=== PATIENT | female | born 1975 | race Caucasian/White ===

== ENCOUNTER 2022-08-20 21:27 | Observation (INO) | payer OTHER ==
[2022-08-20] MEDS ORDERED: KETOROLAC 30 MG/ML INJ ONE (22:28)
[2022-08-20] MEDS ORDERED: DIPHENHYDRAMINE 50 MG/ML VIAL ONE (22:28)
[2022-08-20] MEDS ORDERED: NA CHLORIDE 0.9% 1,000 ML ONE (22:28)
[2022-08-20] MEDS ORDERED: CEFTRIAXONE 1000 MG/VIAL ONE (22:28)
[2022-08-20] MEDS ORDERED: NA CHLORIDE 0.9% 50 ML IV ONE (22:28)
[2022-08-20] MEDS ORDERED: METOCLOPRAMIDE 10 MG/2mL INJ ONE (22:28)
--- NOTE | 2022-08-20 22:36 | RAD REPORT ---
EXAM DESCRIPTION: RAD - Chest Single View - 08/20/2022 10:25 pm CLINICAL HISTORY: COUGH COMPARISON: None TECHNIQUE: AP portable chest image was obtained 08/20/2022 10:25 pm . FINDINGS: Lungs are clear. Heart and vasculature are normal. No measurable pleural effusion and no p neumothorax. No acute bony abnormality seen. No acute aortic findings suspected. IMPRESSION: No acute cardiopulmonary process.
[2022-08-20 23:15] LABS: Urine Blood Negative (Negative); Urine Glucose Negative (Negative); Urine Protein Negative (Negative); Urine Specific Gravity 1.025 (1.005-1.030)
[2022-08-20 23:27] LABS: Calcium Oxalate Crystals- Ur Few /HPF (None Seen); Urine Bacteria <20 /HPF (<20); Urine Mucus 2+ /HPF (None Seen); Urine RBC <5 /HPF (None Seen)
[2022-08-20 23:54] LABS: Absolute Lymphocytes (CBC) 1.9 K/uL (0.7-4.9); Lymphocytes % 29.1 % (15.3-44.8); MCV 88.3 fL (80-100); MPV 7.1 fL (7.6-11.3)
[2022-08-20 23:56] LABS: Protime INR 1.1
[2022-08-21] MEDS ORDERED: DIPHENHYDRAMINE 50 MG/ML VIAL ONE (00:13)
[2022-08-21] MEDS ORDERED: FAMOTIDINE 20 MG/2 ML VIAL IV ONE (00:13)
[2022-08-21 00:14] LABS: Albumin 3.7 g/dL (3.4-5.0); Bilirubin Direct 0.1 mg/dL (0-0.2); Bilirubin Total 0.3 mg/dL (0.2-1.0); Magnesium 1.9 mg/dL (1.6-2.4); Potassium 3.4 mmol/L (3.5-5.1); Protein, Total 6.3 g/dL (6.4-8.2); Troponin High Sensitivity 7.8 pg/mL (<58.9)
[2022-08-21] MEDS ORDERED: NA CHLORIDE 0.9% 500 ML ONE (00:26)
[2022-08-21] MEDS ORDERED: PROMETHAZINE INJ 25 MG/ML AMP ONE ×2 (00:54→04:00)
[2022-08-21] MEDS ORDERED: dexAMETHasone 10 MG/ML VIAL ONE (00:54)
--- NOTE | 2022-08-21 00:55 | EDPHYS ---
Physician Documentation [facility] Name: Deb Ford Age: 47 yrs Sex: Female : 1975 Arrival Date: 08/20/2022 Time: 21:31 Bed 20 Private MD: ED Physician Jama Velásquez HPI: 08/21 00:08 This 47 yrs old Female presents to ER via EMS with complaints of Nausea/Vomiting, snw Headache. 00:08 The patient presents to the emergency department with nausea, vomiting. Onset: The snw symptoms/episode began/occurred acutely, 4 day(s) ago, and became worse and became persistent. Possible causes: chronic illness. Associated signs and symptoms: Pertinent positives: belching, nausea, vomiting. Severity of symptoms: At their worst the symptoms were moderate severe in the emergency department the symptoms are worse. The patient has experienced similar episodes in the past. It is unknown whether or not the patient has recently seen a physician. 00:46 The symptoms are aggravated by nothing. The symptoms are alleviated by remaining still. 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 - Social history:: Smoking status: Patient denies any tobacco usage or history of. ROS: 08/21 00:07 Constitutional: Negative for fever, chills, and weight loss, Eyes: Negative for injury, snw pain, redness, and discharge, ENT: Negative for injury, pain, and discharge, Neck: Negative for injury, pain, and swelling, Cardiovascular: Negative for chest pain, palpitations, and edema, Respiratory: Negative for shortness of breath, cough, wheezing, and pleuritic chest pain. Back: Negative for injury and pain. Skin: Negative for injury, rash, and discoloration. Abdomen/GI: Positive for nausea and vomiting. : Positive for frequent UTIs. MS/extremity: Positive for foot drop, uses wc. Skin: Neuro: Positive for headache. Exam: 00:46 Constitutional: This is a well developed, well nourished patient who is awake, alert, johnny and in no acute distress. Head/Face: Normocephalic, atraumatic. Eyes: Pupils equal round and reactive to light, extra-ocular motions intact. Lids and lashes normal. Conjunctiva and sclera are non-icteric and not injected. Cornea within normal limits. Periorbital areas with no swelling, redness, or edema. ENT: Nares patent. No nasal discharge, no septal abnormalities noted. Tympanic membranes are normal and external auditory canals are clear. Oropharynx with no redness, swelling, or masses, exudates, or evidence of obstruction, uvula midline. Mucous membranes moist. Neck: Trachea midline, no thyromegaly or masses palpated, and no cervical lymphadenopathy. Supple, full range of motion without nuchal rigidity, or vertebral point tenderness. No Meningismus. Chest/axilla: Normal chest wall appearance and motion. Nontender with no deformity. No lesions are appreciated. Cardiovascular: Regular rate and rhythm with a normal S1 and S2. No gallops, murmurs, or rubs. Normal PMI, no JVD. No pulse deficits. Respiratory: Lungs have equal breath sounds bilaterally, clear to auscultation and percussion. No rales, rhonchi or wheezes noted. No increased work of breathing, no retractions or nasal flaring. Abdomen/GI: Soft, non-tender, with normal bowel sounds. No distension or tympany. No guarding or rebound. No evidence of tenderness throughout. Back: No spinal tenderness. No costovertebral tenderness. Full range of motion. Skin: Warm, dry with normal turgor. Normal color with no rashes, no lesions, and no evidence of cellulitis. MS/ Extremity: Pulses equal, no cyanosis. Neurovascular intact. Full, normal range of motion. Neuro: Awake and alert, GCS 15, oriented to person, place, time, and situation. Cranial nerves II-XII grossly intact. Motor strength 5/5 in all extremities. Sensory grossly intact. Cerebellar exam normal. Normal gait. Psych: Awake, alert, with orientation to person, place and time. Behavior, mood, and affect are within normal limits. 00:46 Constitutional: The patient appears in obvious distress, mildly distressed. 00:46 Head/face: Noted is 00:46 Neck: External neck: is normal, no acute changes, C-spine: appears grossly normal, no acute changes, Thyroid: appears normal, no acute changes, ROM/movement: is normal. 00:46 ECG was reviewed by the Attending Physician. Vital Signs: 08/20 21:43 BP 100 / 76; Pulse 85; Resp 16 S; Temp 99.7(TE); Pulse Ox 98% on R/A; Weight 47.63 kg bb (R); Height 5 ft. 5 in. (165.10 cm) (R); Pain 8/10; 23:00 BP 98 / 74; Pulse 84; Temp 11; Pulse Ox 100% ; vc1 08/21 00:00 BP 88 / 64; Pulse 76; Resp 12; Pulse Ox 98% ; vc1 01:00 BP 90 / 53; Pulse 73; Resp 20; Pulse Ox 98% ; vc1 02:00 BP 85 / 52; Pulse 72; Resp 13; Pulse Ox 98% on R/A; vc1 03:02 BP 100 / 69; Pulse 65; Resp 14; Pulse Ox 100% on R/A; vc1 08/20 21:43 Body Mass Index 17.47 (47.63 kg, 165.10 cm) bb [place] Coma Score: 00:51 Eye Response: spontaneous(4). Verbal Response: oriented(5). Motor Response: obeys johnny commands(6). Total: 15. Procedures: 08/20 23:56 Peripheral line: by aseptic technique a peripheral line was placed in the left external snw jugular vein. MDM: 21:58 Patient medically screened. [facility] 08/21 00:51 Differential diagnosis: Nonspecific abd pain, gastritis, pancreatitis, viral johnny gastroenteritis, gastroenteritis. Differential diagnosis: generalized weakness, head injury, hyperventilation, hypovolemia, TIA. Data reviewed: vital signs, nurses notes, lab test result(s), EKG, radiologic studies, CT scan, plain films. Data interpreted: night monitor: rate is 85 beats/min, rhythm is regular, Pulse oximetry: on room air is 98 %. Test interpretation: by ED physician or midlevel provider: ECG, plain radiologic studies. Counseling: I had a detailed discussion with the patient and/or guardian regarding: the historical points, exam findings, and any diagnostic results supporting the discharge/admit diagnosis, the presence of at least one elevated blood pressure reading (>120/80) during this emergency department visit, lab results, radiology results, the need for further work-up and treatment in the hospital. 08/20 22:03 Order name: Basic Metabolic Panel; Complete Time: 00:18 [facility] 08/20 22:03 Order name: CBC with Diff; Complete Time: 00:18 [facility] 08/20 22:03 Order name: LFT's; Complete Time: 00:18 [facility] 08/20 22:03 Order name: Magnesium; Complete Time: 00:18 [facility] 08/20 22:03 Order name: NT PRO-BNP; Complete Time: 00:18 [facility] 08/20 22:03 Order name: PT-INR; Complete Time: 00:18 [facility] 08/20 22:03 Order name: Troponin HS; Complete Time: 00:18 [facility] 08/20 22:03 Order name: Lipase; Complete Time: 00:18 [facility] 08/20 22:03 Order name: Blood Culture Adult (2) [facility] 08/20 22:03 Order name: Lactate w/ 2H reflex if indic.; Complete Time: 00:18 [facility] 08/20 22:03 Order name: COVID-19/FLU A+B [facility] 08/20 22:06 Order name: Urine Microscopic Only; Complete Time: 23:51 [facility] 08/20 23:16 Order name: Urine Dipstick-Ancillary; Complete Time: 23:22 [facility] 08/20 23:37 Order name: Urine Culture [facility] 08/20 22:03 Order name: XRAY Chest (1 view); Complete Time: 23:22 [facility] 08/20 22:03 Order name: EKG; Complete Time: 22:04 [facility] 08/20 22:03 Order name: CT Head Brain wo Cont [facility] 08/21 00:46 Order name: SARS RAPID; Complete Time: 03:43 ll3 08/20 22:03 Order name: Cardiac monitoring; Complete Time: 22:46 [facility] 08/20 22:03 Order name: EKG - Nurse/Tech; Complete Time: 23:06 [facility] 08/20 22:03 Order name: IV Saline Lock; Complete Time: 22:28 [facility] 08/20 22:03 Order name: Labs collected and sent; Complete Time: 22:34 [facility] 08/20 22:03 Order name: O2 Per Protocol; Complete Time: 22:34 [facility] 08/20 22:03 Order name: O2 Sat Monitoring; Complete Time: 22:34 [facility] 08/20 22:06 Order name: Urine Dipstick-Ancillary (obtain specimen); Complete Time: 00:34 johnny 08/20 23:58 Order name: [place]. Order: pur-wick external cath; Complete Time: 00:22 snw 08/21 01:00 Order name: CONS Physician Consult EDMS EC:46 Rate is 68 beats/min. Rhythm is regular. QRS [place] is Normal. NC interval is normal. QRS johnny interval is normal. QT interval is normal. No Q waves. T waves are Normal. No ST changes noted. Clinical impression: NSR w/ Non-specific ST/T Changes and No evidence of ischemia. Interpreted by me. Reviewed by me. Administered Medications: 08/20 23:03 Drug: Benadryl (diphenhydrAMINE) 25 mg Route: IVP; Site: right forearm; vc1 23:03 Drug: Rocephin (cefTRIAXone) 1 grams Route: IV; Rate: per protocol; Site: right forearm;vc1 23:04 Drug: NS 0.9% 1000 ml Route: IV; Rate: 1 bolus; Site: right forearm; vc1 23:04 Drug: Ketorolac 15 mg Route: IVP; Site: right forearm; vc1 23:04 Drug: Reglan (metoCLOPramide) 10 mg Route: IVP; Site: right forearm; vc1 08/21 00:22 Drug: Benadryl (diphenhydrAMINE) 25 mg Route: IVP; Site: left jugular; vc1 00:22 Drug: Pepcid (famotidine) 20 mg Route: IVP; Site: left jugular; vc1 00:46 Drug: NS 0.9% (30 ml/kg) 30 ml/kg Route: IV; Rate: bolus; Site: left jugular; ll3 01:10 Drug: Phenergan (promethazine) 12.5 mg Route: IVP; Site: left jugular; ll3 01:10 Drug: Decadron - Dexamethasone 10 mg Route: IVP; Site: left jugular; ll3 01:13 Drug: NS 0.9% with KCl 20 mEq/L 1000 ml Route: IV; Rate: 125 ml/hr; Site: left jugular; ll3 04:01 Drug: Phenergan (promethazine) 12.5 mg Route: IVP; Site: left jugular; ll3 Disposition: 00:51 Co-signature as Attending Physician, Jama Velásquez MD I agree with the assessment and johnny plan of care. Disposition Summary: 08/21/22 00:54 Hospitalization Ordered Hospitalization Status: Observation johnny Provider: Jb Bowden cha Location: Telemetry/MedSurg (observation) johnny Condition: Fair johnny Problem: new johnny Symptoms: have improved johnny Bed/Room Type: Standard [facility] Room Assignment: 232(08/21/22 02:44) mw Diagnosis - Vomiting johnny - Hypokalemia johnny - Headache johnny - Dehydration johnny - UTI/ Urinary tract infection, site not specified johnny Forms: - Medication Reconciliation Form johnny - SBAR form johnny Signatures: Dispatcher [employer] EDMS Nurys Zuniga RN RN mw Anderson, Corey, MD MD cha Waters, Shelly, AUTO OVERHAULER-C AUTO OVERHAULER-Csnw Yolanda Knight RN RN bb Zayda Klein RN RN ll3 Dasia Rolle RN RN vc1 Corrections: (The following items were deleted from the chart) 02:44 00:54 johnny mw
--- NOTE | 2022-08-21 00:55 | ER ---
Nurse's Notes [facility] Name: Deb Ford Age: 47 yrs Sex: Female : 1975 Arrival Date: 08/20/2022 Time: 21:31 Bed 20 Private MD: Diagnosis: Vomiting;Hypokalemia;Headache;Dehydration;UTI/ Urinary tract infection, site not specified Presentation: 08/20 21:43 Chief complaint: Patient states: she has been vomiting with nausea x 3 or 4 days unable bb to hold anything down and it has caused her to have a severe migraine as well. Coronavirus screen: At this time, the client does not indicate any symptoms associated with coronavirus-19. Ebola Screen: No symptoms or risks identified at this time. Initial Sepsis Screen: Does the patient meet any 2 criteria? No. Patient's initial sepsis screen is negative. Does the patient have a suspected source of infection? No. Patient's initial sepsis screen is negative. Risk Assessment: Do you want to hurt yourself or someone else? Patient reports no desire to harm self or others. Onset of symptoms was August 17, 2022. 21:43 Method Of Arrival: EMS bb 21:43 Acuity: CATA 3 bb Triage Assessment: 08/21 02:47 General: Appears in no apparent distress. uncomfortable, Behavior is fussy, vc1 inappropriate for age. Pain: Complains of pain in headache. GI: Reports lower abdominal pain, upper abdominal pain, intolerance of food, nausea, vomiting. 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 - Social history:: Smoking status: Patient denies any tobacco usage or history of. Screenin:00 Abuse screen: Denies threats or abuse. Nutritional screening: Has had N/V for 3 or more vc1 days. 22:00 [facility] ED Fall Risk Assessment (Adult) History of falling in the last 3 months, vc1 including since admission No falls in past 3 months (0 pts) Confusion or Disorientation No (0 pts) Intoxicated or Sedated No (0 pts) Impaired Gait Yes (1 pt) Mobility Assist Device Used Yes (1 pt) Altered Elimination Yes (1 pt) Score/Fall Risk Level 3 or more points = High Risk Maintained a safe environment, Educated pt \T\ family on fall prevention, incl call for assistance when getting out of bed, Assessed \T\ reinforced patient's understanding of fall precautions. Tuberculosis screening: No symptoms or risk factors identified. Assessment: 23:00 Reassessment: No changes from previously documented assessment. Patient and/or family vc1 updated on plan of care and expected duration. Pain level reassessed. Patient states symptoms have not improved. 23:00 GI: Abdomen is flat. vc1 08/21 00:00 Reassessment: No changes from previously documented assessment. Patient and/or family vc1 updated on plan of care and expected duration. Pain level reassessed. 01:00 Reassessment: No changes from previously documented assessment. Patient and/or family vc1 updated on plan of care and expected duration. Pain level reassessed. 02:00 Reassessment: No changes from previously documented assessment. Patient and/or family vc1 updated on plan of care and expected duration. Pain level reassessed. 03:03 Reassessment: Patient and/or family updated on plan of care and expected duration. Pain vc1 level reassessed. Patient states feeling better. Patient states symptoms have improved. 04:06 Reassessment: Pt took own home meds with permission of Jama Velásquez MD, ERP, Pt took ll3 carbamazepine 200 MG PO, mexiletine 150 mg PO, topiramate 50 MG PO, Pregabalin 100 mg PO, tramadol 200 mg PO. Vital Signs: 08/20 21:43 BP 100 / 76; Pulse 85; Resp 16 S; Temp 99.7(TE); Pulse Ox 98% on R/A; Weight 47.63 kg bb (R); Height 5 ft. 5 in. (165.10 cm) (R); Pain 8/10; 23:00 BP 98 / 74; Pulse 84; Temp 11; Pulse Ox 100% ; vc1 08/21 00:00 BP 88 / 64; Pulse 76; Resp 12; Pulse Ox 98% ; vc1 01:00 BP 90 / 53; Pulse 73; Resp 20; Pulse Ox 98% ; vc1 02:00 BP 85 / 52; Pulse 72; Resp 13; Pulse Ox 98% on R/A; vc1 03:02 BP 100 / 69; Pulse 65; Resp 14; Pulse Ox 100% on R/A; vc1 08/20 21:43 Body Mass Index 17.47 (47.63 kg, 165.10 cm) bb [place] Coma Score: 00:51 Eye Response: spontaneous(4). Verbal Response: oriented(5). Motor Response: obeys johnny commands(6). Total: 15. ED Course: 08/20 21:31 Patient arrived in ED. jj6 21:45 Triage completed. bb 21:45 Arm band placed on Patient placed in an exam room, on a stretcher, on pulse oximetry. bb Family accompanied patient. 21:50 Patient has correct armband on for positive identification. Placed in gown. Bed in low vc1 position. Call light in reach. Client placed on continuous cardiac and pulse oximetry monitoring. NIBP monitoring applied. 21:57 Jama Velásquez MD is Attending Physician. johnny 22:15 Dasia Rolle, RN is Primary Nurse. vc1 22:26 XRAY Chest (1 view) In Process Unspecified. EDMS 22:48 CT Head Brain wo Cont In Process Unspecified. EDMS 08/21 00:53 bJ Bowden MD is Hospitalizing Provider. johnny 00:53 SARS RAPID Sent. ll3 04:58 No provider procedures requiring assistance completed. Patient admitted, IV remains in vc1 place. Administered Medications: 08/20 23:03 Drug: Benadryl (diphenhydrAMINE) 25 mg Route: IVP; Site: right forearm; vc1 23:03 Drug: Rocephin (cefTRIAXone) 1 grams Route: IV; Rate: per protocol; Site: right forearm;vc1 23:04 Drug: NS 0.9% 1000 ml Route: IV; Rate: 1 bolus; Site: right forearm; vc1 23:04 Drug: Ketorolac 15 mg Route: IVP; Site: right forearm; vc1 23:04 Drug: Reglan (metoCLOPramide) 10 mg Route: IVP; Site: right forearm; vc1 08/21 00:22 Drug: Benadryl (diphenhydrAMINE) 25 mg Route: IVP; Site: left jugular; vc1 00:22 Drug: Pepcid (famotidine) 20 mg Route: IVP; Site: left jugular; vc1 00:46 Drug: NS 0.9% (30 ml/kg) 30 ml/kg Route: IV; Rate: bolus; Site: left jugular; ll3 01:10 Drug: Phenergan (promethazine) 12.5 mg Route: IVP; Site: left jugular; ll3 01:10 Drug: Decadron - Dexamethasone 10 mg Route: IVP; Site: left jugular; ll3 01:13 Drug: NS 0.9% with KCl 20 mEq/L 1000 ml Route: IV; Rate: 125 ml/hr; Site: left jugular; ll3 04:01 Drug: Phenergan (promethazine) 12.5 mg Route: IVP; Site: left jugular; ll3 Medication: 03:03 VIS not applicable for this client. vc1 Outcome: 00:54 Decision to Hospitalize by Provider. johnny 04:58 Admitted to Med/surg accompanied by tech, via stretcher, room 232, with chart, Report vc1 called to Prosper Brewer 04:58 Condition: improved 04:59 Patient left the ED. vc1 Signatures: Dispatcher [employer] EDMS Jama Velásquez MD MD cha Waters, Shelly, ETHNOLOGY PROFESSOR-C ETHNOLOGY PROFESSOR-Csnw Yolanda Knight, April Brantley RN, Lynsea, RN RN ll3 Dasia Rolle RN RN vc1
[2022-08-21] MEDS ORDERED: NS KCL 20MEQ 1,000 ML IV ONE (01:07)
[2022-08-21 01:11] LABS: SARS-CoV-2 Antigen Rapid Res Negative (Negative)
[2022-08-21] MEDS ORDERED: ACETAMINOPHEN 325 MG TABLET PO PRN (05:01)
[2022-08-21] MEDS ORDERED: NS KCL 20MEQ 20 MEQ/1,000 ML BAG IV SCH (05:01)
[2022-08-21] MEDS ORDERED: MORPHINE 2 MG/ML SYR IV PRN (05:01)
[2022-08-21 06:19] VITALS: BMI 18.8
[2022-08-21] MEDS: ONDANSETRON 4 MG/2 ML VIAL IV PRN ×2 (06:24→15:49)
[2022-08-21] MEDS ORDERED: FAMOTIDINE 20 MG/2 ML VIAL IV SCH (09:00)
--- NOTE | 2022-08-21 11:02 | RAD REPORT ---
EXAM DESCRIPTION: CT - Head Brain Wo Cont - 08/21/2022 6:40 am CLINICAL HISTORY: 47-year-old female with headache. COMPARISON: None. TECHNIQUE: CT brain without contrast. This exam was performed according to our departmental dose opt imization program which includes use of automated exposure control, adjustment of the mA and/or kV ac cording to patient size and/or use of iterative reconstruction technique. FINDINGS: The ventricles, sulci, and cisterns are within normal limits. The oliveira-white matter diff erentiation is preserved. There is no mass effect, midline shift, intra- or extra-axial fluid colle ction/acute hemorrhage. The osseous structures are unremarkable. The paranasal sinuses and mastoi d air cells are clear. IMPRESSION: No acute intracranial abnormalities. 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 The interpreting radiologist is fully responsible for the content of the report.
[2022-08-21] MEDS ORDERED: SUMATRIPTAN SUCCI 50 MG TAB PO PRN (11:54)
[2022-08-21] MEDS ORDERED: PROMETHAZINE INJ 25 MG/ML AMP IV PRN (11:54)
[2022-08-21] MEDS: ACETAMINOPHEN 500 MG TAB PO SCH ×2 (12:00→18:00)
--- NOTE | 2022-08-21 12:05 | P.HP ---
Certification for Inpatient Patient admitted to: Observation With expected LOS: <2 Midnights Patient will require the following post-hospital care: None Practitioner: I am a practitioner with admitting privileges, knowledge of patient current condition, hospital course, and medical plan of care. Services: Services provided to patient in accordance with Admission requirements found in Title 42 Section 412.3 of the Code of Federal Regulations Patient History Date of Service: 08/21/22 Primary Care Provider: Kal Reason for admission: Migrane, intractable nausea and vomitting History of Present Illness: patient recently established care with me The patient has a history of chronic pain syndrome. For which she took ketamine and buprenorphine. I had restarted her on the burprenorphine. She started having nausea and vomiting for 4 days. She started having migraines. The patient was trying to take her sumatriptans However she has been having more nausea and vomitting. The patient was admitted to the hospital and started on fluids. Her migranes and nausea resolved with zofran. The patient tolerated clear liquid diet. Her is at the bedside. He is a bit nervous about the care of his . Which is normal as the spouse of a patient with chronic medical problems. he is not abusive or rude in anyway Allergies nitrofurantoin [From Macrobid] Allergy (Unverified 08/21/17 22:25) Unknown Penicillins Allergy (Unverified 08/21/17 22:25) Unknown sulfamethoxazole [From Bactrim] Allergy (Unverified 08/21/17 22:25) Unknown trimethoprim [From Bactrim] Allergy (Unverified 08/21/17 22:25) Unknown Erythromycin Allergy (Uncoded 08/21/17 22:25) Unknown Home Medications: Carbamazepine [Carbamazepine ER] 200 mg PO BID 08/21/22 Cyanocobalamin (Vitamin B-12) [Cyanocobalamin Injection] 1 ml SQ EVERY 7TH DAY 08/21/22 Lidocaine 4% Patch [Lidoderm 5% Patch*] 1 patch TOP Q12HP PRN 08/21/22 Mexiletine HCl [Mexitil*] 150 mg PO BID 08/21/22 Ondansetron [Zuplenz] 4 mg SL PRN PRN 08/21/22 Pregabalin [Lyrica] 100 mg PO BID 08/21/22 Sumatriptan [Imitrex*] 6 mg PO PRN 08/21/22 Sumatriptan [Imitrex*] 100 mg PO PRN PRN 08/21/22 Topiramate 50 mg PO BID 08/21/22 traMADol HCL [Ultram*] 200 mg PO DAILY 08/21/22 - Past Medical/Surgical History Has patient received pneumonia vaccine in the past: No Diabetic: No -: gastroparesis -: foot drop to L leg -: chronic back pain -: hysterectomy -: back surgeries x9 -: gallblader and appendix removal -: abd hernia -: prolapse bladder -: prolaspse uterus -: 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 moist/pink, EOMI, Sclerae nonicteric Neck: Supple, 2+ carotid pulse no bruit, No LAD, Without JVD or thyroid abnorm ality Respiratory: Clear to auscultation bilaterally, Normal air movement Cardiovascular: Regular rate/rhythm, Normal S1 S2 Gastrointestinal: Normal bowel sounds, No tenderness Musculoskeletal: No tenderness Integumentary: No rashes Neurological: Normal gait, Normal speech, Normal strength at 5/5 x4 extr, Normal tone, Normal affect Lymphatics: No axilla or inguinal lymphadenopathy - Studies Laboratory Data (last 24 hrs) 08/20/22 23:39: PT 12.1, INR 1.10 08/20/22 23:39: WBC 6.60, Hgb 13.1, Hct 38.0, Plt Count 211 08/20/22 23:39: Sodium 141, Potassium 3.4 L, BUN 16, Creatinine 0.52 L, Glucose 88, Magnesium 1.9, Total Bilirubin 0.3, AST 13 L, ALT 21, Alkaline Phosphatase 67, Lipase 245 Assessment and Plan - Problems (Diagnosis) (1) Acute migraine Current Visit: Yes Status: Acute Plan: will continue fluids, sumatriptan and phenergan. Will start feeding the patient and see how she tolerates (2) UTI (urinary tract infection) Current Visit: Yes Status: Acute Plan: start her on a few days of cipro Qualifiers: Urinary tract infection type: acute cystitis Hematuria presence: without hematuria Qualified Code(s): N30.00 - Acute cystitis without hematuria (3) Chronic pain syndrome Current Visit: Yes Status: Chronic Plan: restart the patients cipro. Discharge Plan: Home Plan to discharge in: 24 Hours - Advance Directives Does patient have a Living Will: Yes Does patient have a Durable POA for Healthcare: Yes - Code Status/Comfort Care Code Status Assessed: Yes Code Status: Full Code Physician Review: Patient Assessed, Agree with Above Assessment and Plan Critical Care: No Time Spent Managing Pts Care (In Minutes): 45
[2022-08-21] MEDS ORDERED: LIDOCAINE 4% PATCH TOP PRN (12:10)
[2022-08-21] MEDS ORDERED: ONDANSETRON 4 MG SL PRN (12:10)
[2022-08-21] MEDS: D5 0.45 NS 1,000 ML IV SCH ×2 (15:49→22:00)
[2022-08-21] MEDS ORDERED: BUPRENORPHINE 8 MG SL SCH (16:00)
[2022-08-21] MEDS ORDERED: TRAMADOL 200 MG PO SCH (17:00)
[2022-08-21] MEDS: KETAMINE PO SCH ×2 (17:00→22:23)
[2022-08-21] MEDS ORDERED: TOPIRAMATE 25 MG TAB PO SCH (21:00)
[2022-08-21] MEDS: CARBAMAZEPINE 200 MG PO SCH ×2 (21:00→22:17)
[2022-08-21] MEDS ORDERED: PREGABALIN 50 MG CAP PO SCH (21:00)
[2022-08-21] MEDS ORDERED: KETAMINE PO SCH (21:00)
[2022-08-21] MEDS ORDERED: MEXILETINE HCL 150 MG CAP PO SCH (21:00)
[2022-08-22] MEDS: ACETAMINOPHEN 500 MG TAB PO SCH ×2 (00:58→06:00)
[2022-08-22 01:26] VITALS: O2SAT 99
[2022-08-22 06:48] LABS: Hematocrit 33.9 % (36.0-45.0); Lymphocytes % 53.2 % (15.3-44.8); MCV 87.7 fL (80-100); MPV 7.1 fL (7.6-11.3); RBC Red Blood Cell Count 3.86 M/uL (3.86-4.86)
[2022-08-22 07:35] LABS: Blood Morphology Comment NOT SEEN (NOT SEEN); Platelet Estimate ADEQ
--- NOTE | 2022-08-22 08:15 | P.DS ---
Admission Date: 08/21/22 Discharge Date: 08/22/22 Primary Care Provider: Kal Disposition: ROUTINE DISCHARGE Discharge Condition: GOOD Reason for Admission: Migrane, intractable nausea and vomitting - Problems (1) Acute migraine Current Visit: Yes Status: Acute (2) UTI (urinary tract infection) Current Visit: Yes Status: Acute Qualifiers: Urinary tract infection type: acute cystitis Hematuria presence: without hematuria Qualified Code(s): N30.00 - Acute cystitis without hematuria (3) Chronic pain syndrome Current Visit: Yes Status: Chronic Brief History of Present Illness: patient recently established care with me The patient has a history of chronic pain syndrome. For which she took ketamine and buprenorphine. I had restarted her on the burprenorphine. She started having nausea and vomiting for 4 days. She started having migraines. The patient was trying to take her sumatriptans However she has been having more nausea and vomitting. The patient was admitted to the hospital and started on fluids. Her migranes and nausea resolved with zofran. The patient tolerated clear liquid diet. Her is at the bedside. He is a bit nervous about the care of his . Which is normal as the spouse of a patient with chronic medical problems. he is not abusive or rude in anyway Hospital Course: patient came in with leon, N&V. She was found to have a mild uti She did very well with fluids. the patient did complaint of more back pain. Will in crease her buprenorphine from my office computer. She can follow up in a week. Thank you for allowing me to take part in her care. Vital Signs/Physical Exam: Temp Pulse Resp BP Pulse Ox 97.7 F 75 18 106/76 100 08/22/22 04:00 08/22/22 04:00 08/22/22 04:00 08/22/22 04:00 08/22/22 04:00 General: Alert, Mild distress HEENT: Atraumatic, PERRLA, EOMI Neck: Supple, JVD not distended Respiratory: Clear to auscultation bilaterally, Normal air movement Cardiovascular: Regular rate/rhythm, Normal S1 S2 Gastrointestinal: Normal bowel sounds, No tenderness Musculoskeletal: No tenderness Integumentary: No rashes Neurological: Normal speech, Normal tone, Normal affect Lymphatics: No axilla or inguinal lymphadenopathy Laboratory Data at Discharge: WBC 5.70 K/uL (4.3-10.9) 08/22/22 06:15 Hgb 12.0 g/dL (12.0-15.0) 08/22/22 06:15 Hct 33.9 % (36.0-45.0) L 08/22/22 06:15 Plt Count 182 K/uL (152-406) 08/22/22 06:15 PT 12.1 SECONDS (9.5-12.5) 08/20/22 23:39 INR 1.10 08/20/22 23:39 Sodium 144 mmol/L (136-145) 08/22/22 06:15 Potassium 3.0 mmol/L (3.5-5.1) L D 08/22/22 06:15 BUN 8 mg/dL (7-18) 08/22/22 06:15 Creatinine 0.51 mg/dL (0.55-1.02) L 08/22/22 06:15 Glucose 100 mg/dL (74-106) 08/22/22 06:15 Magnesium 1.9 mg/dL (1.6-2.4) 08/20/22 23:39 Total Bilirubin 0.3 mg/dL (0.2-1.0) 08/20/22 23:39 AST 13 U/L (15-37) L 08/20/22 23:39 ALT 21 U/L (13-56) 08/20/22 23:39 Alkaline Phosphatase 67 U/L (45-117) 08/20/22 23:39 Lipase 245 U/L (73-393) 08/20/22 23:39 Home Medications: Carbamazepine [Carbamazepine ER] 200 mg PO BID 08/21/22 Cyanocobalamin (Vitamin B-12) [Cyanocobalamin Injection] 1 ml SQ EVERY 7TH DAY 08/21/22 Lidocaine 4% Patch [Lidoderm 5% Patch*] 1 patch TOP Q12HP PRN 08/21/22 Mexiletine HCl [Mexitil*] 150 mg PO BID 08/21/22 Ondansetron [Zuplenz] 4 mg SL PRN PRN 08/21/22 Pregabalin [Lyrica] 100 mg PO BID 08/21/22 Sumatriptan [Imitrex*] 6 mg PO PRN 08/21/22 Sumatriptan [Imitrex*] 100 mg PO PRN PRN 08/21/22 Topiramate 50 mg PO BID 08/21/22 traMADol HCL [Ultram*] 200 mg PO DAILY 08/21/22 Ciprofloxacin HCl [Cipro 500 MG Tablet] 500 mg PO BID 5 Days #10 tab 08/22/22 New Medications: Ciprofloxacin HCl [Cipro 500 MG Tablet] 500 mg PO BID 5 Days #10 tab Diet: Regular Activity: Ad delgado Followup: Jb Bowden MD [Primary Care Provider] - 1 Week Physician Review: Patient Assessed, Agree with Above Assessment and Plan Time spent managing pt's care (in minutes): 30
--- NOTE | 2022-08-22 08:34 | EKG ---
Test Date: 2022-08-21 Test Time: 00:30:23 Office Helper: ADÁN MEASUREMENT RESULTS: Intervals: Rate: 68 UT: 130 QRSD: 92 QT: 454 QTc: 482 [place]: P: 56 UT: 130 QRS: 85 T: 74 INTERPRETIVE STATEMENTS: Normal sinus rhythm RSR' or QR pattern in V1 suggests right ventricular conduction delay Nonspecific ST abnormality Abnormal ECG No previous ECG available for comparison Electronically Signed On 08-22-22 08:31:20 CORPORATE TRAVEL COUNSELOR by Dennis Remy
[2022-08-22 09:07] VITALS: BP 106/60; TEMP 97.3
[2022-08-28] MEDS ORDERED: CYANOCOBALAMIN 1000MCG/ML INJ SQ SCH (09:00)
== END 2022-08-22 10:44 | disposition home or self-care (01) ==
LOC: ER 21:27 → ERHOLD 08-21 00:56 → 2ND 08-21 04:11
PROVIDERS: ADMIT Internal Medicine; ATTEND Internal Medicine
DX: G43.909 Migraine, unspecified, not intractable, without status migrainosus (principal); N39.0 Urinary tract infection, site not specified; G89.29 Other chronic pain; Z88.0 Allergy status to penicillin; Z88.8 Allergy status to other drugs, medicaments and biological substances; Z88.3 Allergy status to other anti-infective agents; Z86.79 Personal history of other diseases of the circulatory system; Z85.9 Personal history of malignant neoplasm, unspecified; Z20.822 Contact with and (suspected) exposure to COVID-19
CPT/HCPCS: 93005; 87040 ×2; 87088; 85025 ×2; 87086; 80048 ×2; 36415 ×2; 83735; 84132; 85610; 80076; 83605; 84484; 83690; 83880; 70450; 71045; 99285; 87811; J2765; J2550 ×2; J1200 ×2; J2001; J1100; J7799; J7040; J7030; J2405 ×2; J3480; 81003; 81015

== ENCOUNTER 2023-06-05 16:50 | Inpatient (IN) | payer OTHER ==
--- OUTSIDE RECORDS SUMMARY | 2023-06-05 16:53 | XMS REPORT | Continuity of Care Document ---
:1975 Author Organization [facility] t Address [address] [place] [address] Care Team Providers Name Role Phone BLANCA PATEL Primary Care Physician Unavailable PEPITO SY Attending Clinician Unavailable ROBE CHAMBERS Attending Clinician Unavailable Doctor Unassigned, [place] Attending Clinician Unavailable Pob, [facility] Main Attending Clinician Unavailable Pepito Sy MD Attending Clinician John Solano MD Attending Clinician JOHN SOLANO Attending Clinician Unavailable JOHN SOLANO Attending Clinician Unavailable PEPITO SY Admitting Clinician Unavailable Payers Payer Name Policy Type Policy Number Effective Date Expiration Date S cleo [employer] CHOICE [id number] 2022 00:00:00 Problems This patient has no known problems. Allergies, Adverse Reactions, Alerts Allergy Allergy Status Severity Reaction(s) Onset Inactive Treating Comm ents Source Name Type Date Date Clinician ADHESIVE DRUG Active Med Rash 2022-08 Univers TAPE-JERROD 0-10 ity of ICONES 00:00: [place] [facility] Adhesive Drug Active Rash 2022-08 Rash from Unive rs Tape-Jerrod Intolera 0-10 steri-str ity of icones nce 00:00: [facility] [place] tegaderm [facility] Erythrom Drug Active Nausea 2022-08 Univers ycin Allergy and/or 0-10 ity of Ethylsuc Vomiting 00:00: [place] cinate [facility] Nitrofur Drug Active Nausea 2022-08 Univers antoin Allergy and/or 0-10 ity of Monohyd/ Vomiting 00:00: [place] M-Cryst 00 Medical Branch Penicill Drug Active Hives 2022-08 Univers ins Allergy 0-10 ity of 00:00: [place] 00 Medical Branch Sulfa Drug Active Nausea 2022-08 Univers (Sulfona Allergy and/or 0-10 ity of mide Vomiting 00:00: [place] Antibiot 00 Medical ics) Branch PENICILL Drug Active High Hives 2022-08 Univers INS Class 0-10 ity of 00:00: [place] 00 Medical Branch NITROFUR DRUG Active High Hives 2022-08 Univers ANTOIN 0-10 ity of MONOHYD/ 00:00: [place] M-CRYST Medical Branch SULFA Drug Active High Hives 2022-08 Univers (SULFONA Class 0-10 ity of MIDE 00:00: [place] ANTIBIOT 00 Medical ICS) Branch ERYTHROM DRUG Active High Hives 2022-08 Univers YCIN INGREDI 0-10 ity of ETHYLSUC 00:00: [place] CINATE 00 Medical Branch NO KNOWN Drug Active Univers ALLERGIE Class ity of S [facility] Social History Social Habit Start Date Stop Date Quantity Comments Source Gender identity Universit y of [facility] Sexual orientation Univer sity [facility] Tobacco use and 2023-05-29 2023-05-29 Smokeless Universit y of exposure 00:00:00 00:00:00 tobacco non-user [facility] dical [place] History of Social 2023-05-08 2023-05-08 Univers ity of function 00:00:00 00:00:00 [facility] Sex [birth year] At [birth year] Universit y of 00:00:00 00:00:00 [facility] Smoking Status Start Date Stop Date Source Never smoked tobacco [facility] [place] [facility] Medications Ordered Filled Start Stop Current Ordering Indication Dosage Frequency Signature Comments Components Source Medication Medication Date Date Medication? Clinician (SIG) Name Name mexiletine 2022-08 Yes 150mg Take 1 Univ ers 150 mg 0-10 capsule by ity of capsule 15:20: mouth in [place] 20 the Medical morning Branch and 1 capsule in the evening. BID sumatriptan 2022-08 Yes 100mg Take 1 Uni vers (IMITREX) 0-10 tablet by ity o f 100 mg 15:20: mouth as [place] tablet 20 needed for Medical Migraine. Branch carBAMazepi 2023-1 Yes 200mg Take 1 Uni vers ne 200 mg 0-10 tablet by ity o f 12 hr 15:20: mouth in [place] tablet 20 the Medical morning Branch and 1 tablet in the evening. carBAMazepi 2023-0 Yes 200mg Take 1 Uni vers ne 200 mg 9-19 tablet by ity o f 12 hr 11:05: mouth in [place] tablet 25 the Medical morning Branch and 1 tablet in the evening. carBAMazepi 2023-0 Yes 200mg Take 1 Uni vers ne 200 mg 9-19 tablet by ity o f 12 hr 11:05: mouth in [place] tablet 25 the Medical morning Branch and 1 tablet in the evening. carBAMazepi 2023-0 Yes 200mg Take 1 Uni vers ne 200 mg 9-19 tablet by ity o f 12 hr 11:05: mouth in [place] tablet 25 the Medical morning Branch and 1 tablet in the evening. carBAMazepi 2023-0 Yes 200mg Take 1 Uni vers ne 200 mg 9-19 tablet by ity o f 12 hr 11:05: mouth in [place] tablet 25 the Medical morning Branch and 1 tablet in the evening. sumatriptan 2023-0 Yes 100mg Take 1 Uni vers (IMITREX) 9-19 tablet by ity o f 100 mg 11:04: mouth as [place] tablet 51 needed for Medical Migraine. Branch sumatriptan 2023-0 Yes 100mg Take 1 Uni vers (IMITREX) 9-19 tablet by ity o f 100 mg 11:04: mouth as [place] tablet 51 needed for Medical Migraine. Branch sumatriptan 2023-0 Yes 100mg Take 1 Uni vers (IMITREX) 9-19 tablet by ity o f 100 mg 11:04: mouth as [place] tablet 51 needed for Medical Migraine. Branch sumatriptan 2023-0 Yes 100mg Take 1 Uni vers (IMITREX) 9-19 tablet by ity o f 100 mg 11:04: mouth as [place] tablet 51 needed for Medical Migraine. Branch mexiletine 2023-0 Yes 150mg Take 1 Univ ers 150 mg 9-19 capsule by ity of capsule 11:03: mouth [place] 38 every 8 Medical (eight) Branch hours. BID mexiletine 2023-0 Yes 150mg Take 1 Univ ers 150 mg 9-19 capsule by ity of capsule 11:03: mouth [place] 38 every 8 Medical (eight) Branch hours. BID mexiletine 2023-0 Yes 150mg Take 1 Univ ers 150 mg 9-19 capsule by ity of capsule 11:03: mouth [place] 38 every 8 Medical (eight) Branch hours. BID mexiletine 2023-0 Yes 150mg Take 1 Univ ers 150 mg 9-19 capsule by ity of capsule 11:03: mouth [place] 38 every 8 Medical (eight) Branch hours. BID topiramate 2023-0 Yes 50mg 1 tablet. Un tone 50 mg 9-14 ONCE DAILY ity of tablet 00:00: [place] [facility] topiramate 2023-0 Yes 50mg 1 tablet. Un tone 50 mg 9-14 ONCE DAILY ity of tablet 00:00: [place] [facility] topiramate 2023-0 Yes 50mg 1 tablet. Un tone 50 mg 9-14 ONCE DAILY ity of tablet 00:00: [place] [facility] topiramate 2023-0 Yes 50mg 1 tablet. Un tone 50 mg 9-14 ONCE DAILY ity of tablet 00:00: [place] [facility] topiramate 2023-0 Yes 50mg 1 tablet. Un tone 50 mg 9-14 ONCE DAILY ity of tablet 00:00: [place] [facility] buprenorphi 3-[address] 1 Uni vers ne HCL 8 mg 9-11 tablet ity of sublingual 00:00: under the [place] tablet 00 tongue in Medical the Branch morning and 1 tablet in the evening. traMADoL 3-0 Yes 200mg Take 1 Univer s 200 mg 24 9-11 tablet by ity o f hr tablet 00:00: mouth once [place] 00 daily as Medical needed. Branch buprenorphi 3-0 Yes DISSOLVE 1 Univers ne HCL 8 mg 9-11 TABLET ity of sublingual 00:00: UNDER THE [place] tablet 00 TONGUE Medical EVERY DAY Branch traMADoL 3-0 Yes 200mg Take 1 Univer s 200 mg 24 9-11 tablet by it[place] o f hr tablet 00:00: [place] the [place] morning. Branch buprenorphi 3-0 Yes DISSOLVE 1 Univers ne HCL 8 mg 9-11 TABLET ity of sublingual 00:00: [place]ER THE [place] tablet 00 TONGUE Medical EVERY DAY Branch traMADoL 2023-0 Yes 200mg Take 1 Univer s 200 mg 24 9-11 tablet by ity o f hr tablet 00:00: mouth in the Medical morning. Branch buprenorphi 3-0 Yes DISSOLVE 1 Univers ne HCL 8 mg 9-11 TABLET ity of sublingual 00:00: [place]ER THE [place] tablet 00 TONGUE Medical EVERY DAY Branch traMADoL 3-0 Yes 200mg Take 1 Univer s 200 mg 24 9-11 tablet by ity o f hr tablet 00:00: mouth in the Medical morning. Branch buprenorphi 3-0 Yes DISSOLVE 1 Univers ne HCL 8 mg 9-11 TABLET ity of sublingual 00:00: [place]ER THE [place] tablet 00 TONGUE Medical EVERY DAY Branch traMADoL 3-0 Yes 200mg Take 1 Univer s 200 mg 24 9-11 tablet by ity o f hr tablet 00:00: mouth in the Medical morning. Branch phenazopyri 3-0 Yes TAKE 1 Univ ers dine 100 mg 9-05 TABLET BY ity of tablet 00:00: MOUTH 00 THREE Medical TIMES Branch DAILY NEEDED FOR DYSURIA phenazopyri 2023-0 Yes TAKE 1 Univ ers dine 100 mg 9-05 TABLET BY ity of tablet 00:00: MOUTH 00 THREE Medical TIMES Branch DAILY NEEDED FOR DYSURIA phenazopyri 2023-0 Yes TAKE 1 Univ ers dine 100 mg 9-05 TABLET BY ity of tablet 00:00: MOUTH 00 THREE Medical TIMES Branch DAILY NEEDED FOR DYSURIA phenazopyri 2023-0 Yes TAKE 1 Univ ers dine 100 mg 9-05 TABLET BY ity of tablet 00:00: MOUTH 00 THREE Medical TIMES Branch DAILY NEEDED FOR DYSURIA phenazopyri 2023-0 Yes TAKE 1 Univ ers dine 100 mg 9-05 TABLET BY ity of tablet 00:00: MOUTH 00 THREE Medical TIMES Branch DAILY NEEDED FOR DYSURIA proMETHazin 2023-0 Yes TAKE 1 Univ ers e 12.5 mg 8-01 TABLET BY ity o f tablet 00:00: MOUTH [place] 00 EVERY 6 TO Medical 8 HOURS Branch NEEDED 7 DAYS proMETHazin 2023-0 Yes TAKE 1 Univ ers e 12.5 mg 8-01 TABLET BY ity o f tablet 00:00: MOUTH [place] 00 EVERY 6 TO Medical 8 HOURS Branch NEEDED 7 DAYS proMETHazin 2023-0 Yes TAKE 1 Univ ers e 12.5 mg 8-01 TABLET BY ity o f tablet 00:00: MOUTH [place] 00 EVERY 6 TO Medical 8 HOURS Branch NEEDED 7 DAYS proMETHazin 2023-0 Yes TAKE 1 Univ ers e 12.5 mg 8-01 TABLET BY ity o f tablet 00:00: MOUTH [place] 00 EVERY 6 TO Medical 8 HOURS Branch NEEDED 7 DAYS proMETHazin 2023-0 Yes TAKE 1 Univ ers e 12.5 mg 8-01 TABLET BY ity o f tablet 00:00: MOUTH [place] 00 EVERY 6 TO Medical 8 HOURS Branch NEEDED 7 DAYS pregabalin 2023-0 Yes 100mg Take 1 Univ ers 100 mg 7-30 capsule by ity of capsule 00:00: mouth in [place] 00 the Medical morning Branch and 1 capsule in the evening. pregabalin 2023-0 Yes 100mg Take 1 Univ ers 100 mg 7-30 capsule by ity of capsule 00:00: mouth in [place] the Medical morning Branch and 1 capsule in the evening. pregabalin 2023-0 Yes 100mg Take 1 Univ ers 100 mg 7-30 capsule by ity of capsule 00:00: mouth in [place] the Medical morning Branch and 1 capsule in the evening. pregabalin 2023-0 Yes 100mg Take 1 Univ ers 100 mg 7-30 capsule by ity of capsule 00:00: mouth in [place] the Medical morning Branch and 1 capsule in the evening. pregabalin 2023-0 Yes 100mg Take 1 Univ ers 100 mg 7-30 capsule by ity of capsule 00:00: mouth in [place] the Medical morning Branch and 1 capsule in the evening. ondansetron 2023-0 Yes 4mg 0.5 Univer s 8 mg 7-07 tablets. ity of disintegrat 00:00: [place] ing tablet 00 [facility] ondansetron 2023-0 Yes 4mg 0.5 Univer s 8 mg 7-07 tablets. ity of disintegrat 00:00: [place] ing tablet 00 [facility] ondansetron 2023-0 Yes 4mg 0.5 Univer s 8 mg 7-07 tablets. ity of disintegrat 00:00: [place] ing tablet 00 [facility] ondansetron 2023-0 Yes 4mg 0.5 Univer s 8 mg 7-07 tablets. ity of disintegrat 00:00: [place] ing tablet 00 [facility] ondansetron 2022-0 Yes 4mg 0.5 [facility] s 8 mg 7-07 tablets. ity of disintegrat 00:00: [place] ing tablet 00 [facility] Vital Signs Vital Name Observation Time Observation Value Comments Source Systolic blood 2023-05-08 15:55:00 116 mm[facility] pressure [facility] Diastolic blood 2023-05-08 15:55:00 75 mm[facility] Heart rate 2023-05-08 15:55:00 96 /min [facility] Body height 2023-05-08 15:55:00 166.4 cm [facility] Body weight 2023-05-08 15:55:00 47.628 kg [facility] BMI 2023-05-08 15:55:00 17.21 kg/m2 [facility] Oxygen saturation 2023-05-08 15:55:00 98 /min [facility] in Arterial blood Medical Br anch by Pulse oximetry Procedures Procedure Date / Time Performing Clinician Source Performed INSURANCE CORRESPONDENCE 2023-05-31 05:01:00 Doctor Mendel, [facility] NOTICE OF BILLING 2023-05-15 15:45:42 Doctor Mendel, [facility] PRACTICES FOR MEDIC[facility] PATIENTS ASSIGNMENT OF BENEFITS 2023-05-08 15:49:56 Doctor Mendel, [facility] Encounters Start End Encounter Admission Attending Care Care Encounter Source Date/Time Date/Time Type Type Clinicians Facility Department ID 2023-05-11 Outpatient R KERRIE [facility] ANS [id number] Univers 11:57:46 PEPITO [facility] 2023-06-05 2023-06-05 Outpatient R TRISH [facility] [id number] Univers 13:00:00 13:55:08 ROBE [facility] 2023-05-31 2023-05-31 Orders Doctor LEON [id number] Univers 00:00:00 00:00:00 Only UnassSHOSHANA traore 350.1.13.10 ity of [facility] [id number] [place] [phone] [address] 2023-05-15 2023-05-15 Parquetry Layer Paulette [facility] Main [facility] 1.2.8 40.114 [id number] Univers 11:00:00 11:15:00 Visit Pepito Sy 350.1.13.1 0 ity of [id number] [place] [phone] Mi dical [facility] 353 Branch BUILDING 2023-05-15 2023-05-15 Outpatient R KERRIE [facility] [id number] Univers 11:00:00 11:00:00 PEPITO [facility] 2023-05-15 2023-05-15 Orders Doctor EDWARD [id number] Univers 00:00:00 00:00:00 Only Unassigned, SHOSHANA 350.1.13.10 ity of [facility] 4.2.7.2.686 [place] [phone] [address] 2023-05-08 2023-05-08 Office Russ [facility] [id number] Univers 11:00:00 11:48:09 Visit [facility] [id number] ity of [facility] [id number] [place] as [place]?BLEA [phone] Mi dical EY [address] [place] MEDICAL OFF[facility] BUILDING 2023-05-08 2023-05-08 Outpatient R JOHN SOLANO [facility] [id number] Univers 11:00:00 11:48:09 JOHN SOLANO ity [facility] 2023-05-08 2023-05-08 Orders Doctor EDWARD [id number] Univers 00:00:00 00:00:00 Only Unassigned, SHOSHANA 350.1.13.10 ity of [facility] 4.2.7.2.686 [place] [phone] [address] Results This patient has no known results.
--- NOTE | 2023-06-05 17:59 | RAD REPORT ---
EXAM DESCRIPTION: RADChest Single View06/05/2023 5:34 pm CLINICAL HISTORY: CHEST PAIN COMPARISON: Chest Single View dated 08/20/2022 TECHNIQUE: Portable AP view of the chest. FINDINGS: The lungs are clear. No pneumothorax or effusion. The cardiomediastinal contours are unre markable. IMPRESSION: No acute cardiopulmonary process.
[2023-06-05 18:52] LABS: Platelets 233 thou/uL (152-406)
[2023-06-05 18:56] LABS: Absolute Lymphocytes (CBC) 2.2 K/uL (0.7-4.9); Hematocrit 40.3 % (36.0-45.0); Lymphocytes % 43.6 % (15.3-44.8); MCV 88.9 fL (80-100); RBC Red Blood Cell Count 4.53 M/uL (3.86-4.86)
[2023-06-05 19:11] LABS: ALT/SGPT 23 U/L (13-56); AST/SGOT 14 U/L (15-37); Albumin 4.3 g/dL (3.4-5.0); Alkaline Phosphatase 99 U/L (45-117); BUN Blood Urea Nitrogen 9 mg/dL (7-18); Bicarbonate 32 mEq/L (21-32); Bilirubin Total 0.2 mg/dL (0.2-1.0); Glomerular Filtration Rate 110 ml/min (=/>90); Glucose Level 89 mg/dL (74-106); Magnesium 2.2 mg/dL (1.6-2.4); Potassium 3.6 mEq/L (3.5-5.1); Protein, Total 7.3 g/dL (6.4-8.2); Sodium Level 139 mEq/L (136-145); Troponin High Sensitivity 4.9 pg/mL (<58.9)
[2023-06-05 19:12] LABS: Bilirubin Direct < 0.1 mg/dL (0-0.2); Bilirubin Indirect, Calculated ND mg/dL (0.2-0.8)
[2023-06-05 19:14] LABS: Blood Morphology Comment NOT SEEN (NOT SEEN); Platelet Estimate ADEQ; White Blood Cell Scan OK (OK)
[2023-06-05] MEDS ORDERED: ACETAMINOPHEN 500 MG TAB PO PRN (19:27)
[2023-06-05] MEDS ORDERED: MORPHINE 2 MG/ML SYR IV PRN (19:27)
--- NOTE | 2023-06-05 19:34 | ER ---
Nurse's Notes [facility] Name: Deb Ford Age: 47 yrs Sex: Female : 1975 Arrival Date: 06/05/2023 Time: 16:50 Bed 20 Private MD: Diagnosis: Multidrug resistant UTI;Chest pain, unspecified Presentation: 06/05 17:00 Chief complaint: Patient states: she has been having chest pain since "yesterday-efe" ap3 patient reports that the pain is currently 5/10 on the pain scale at this time. patient states that pushing on her chest makes the pain a little bit better, but nothing is making the pain worse. Patient also states that her PCP sent her over for a PICC line and for IV antibiotics. Coronavirus screen: At this time, the client does not indicate any symptoms associated with coronavirus-19. Ebola Screen: No symptoms or risks identified at this time. Initial Sepsis Screen: Does the patient meet any 2 criteria? HR > 90 bpm. Does the patient have a suspected source of infection? Yes: Dysuria/Frequency/Urgency/UTI. Risk Assessment: Do you want to hurt yourself or someone else? Patient reports no desire to harm self or others. Onset of symptoms was June 04, 2023. 17:00 Method Of Arrival: Wheelchair ap3 17:00 Acuity: CATA 3 ap3 Triage Assessment: 17:03 General: Appears in no apparent distress. Behavior is calm, cooperative, appropriate ap3 for age. Pain: Complains of pain in chest Pain currently is 5 out of 10 on a pain scale. Alleviated by pushing on where the pain is. Neuro: Level of Consciousness is awake, alert, obeys commands, Oriented to person, place, time, situation. Cardiovascular: Patient's skin is warm and dry. Respiratory: Airway is patent Respiratory effort is even, unlabored, Respiratory pattern is regular, symmetrical. Historical: - Allergies: 17:03 Bactrim; ap3 17:03 Erythromycin; ap3 17:03 Macrobid; ap3 17:03 PENICILLINS; ap3 17:04 Sulfa (Sulfonamide Antibiotics); ap3 - PMHx: 17:03 Arachnitis; Enlarged bile duct; Left Footdrop; ap3 17:04 Chronic back pain; ap3 - Immunization history:: Client reports receiving the 2nd dose of the Covid vaccine. - Social history:: Smoking status: Patient denies any tobacco usage or history of. Screenin:06 Abuse screen: Denies threats or abuse. Nutritional screening: No deficits noted. ap3 Tuberculosis screening: No symptoms or risk factors identified. Assessment: 17:07 Pain: Pain does not radiate. ap3 17:30 Reassessment: See triage assessment. nj1 18:30 Reassessment: Patient appears in no apparent distress at this time. Patient and/or nj1 family updated on plan of care and expected duration. Pain level reassessed. Patient is alert, oriented x 3, equal unlabored respirations, skin warm/dry/pink. 19:30 Reassessment: Patient appears in no apparent distress at this time. Patient and/or nj1 family updated on plan of care and expected duration. Pain level reassessed. Patient is alert, oriented x 3, equal unlabored respirations, skin warm/dry/pink. 20:30 Reassessment: Patient appears in no apparent distress at this time. Patient and/or nj1 family updated on plan of care and expected duration. Pain level reassessed. Patient is alert, oriented x 3, equal unlabored respirations, skin warm/dry/pink. 22:00 Reassessment: Patient appears in no apparent distress at this time. Patient and/or jb4 family updated on plan of care and expected duration. Pain level reassessed. Patient is alert, oriented x 3, equal unlabored respirations, skin warm/dry/pink. Vital Signs: 17:00 BP 111 / 78; Pulse 91; Resp 18; Temp 97.8; Pulse Ox 96% ; Weight 48.53 kg; Pain 5/10; ap3 19:41 BP 107 / 72; Pulse 73; Resp 14; Pulse Ox 99% on R/A; nj1 20:30 BP 109 / 74; Pulse 75; Resp 16; Pulse Ox 100% ; nj1 21:00 BP 99 / 63; Pulse 74; Resp 16; Pulse Ox 99% on R/A; jb4 17:00 Pain Scale: Adult ap3 ED Course: 16:53 Patient arrived in ED. im 16:53 Joo Garcia DO is Attending Physician. ms3 17:03 Triage completed. ap3 17:06 Arm band placed on left wrist. ap3 17:06 Patient maintains SpO2 saturation greater than 95% on room air. ap3 17:16 Patient has correct armband on for positive identification. Bed in low position. Call ap3 light in reach. Side rails up X2. Adult w/ patient. child monitor on. Pulse ox on. NIBP on. 17:36 XRAY Chest (1 view) In Process Unspecified. EDMS 17:43 Darling Chavez, RN is Primary Nurse. nj1 18:20 EKG done, by ED staff. tm3 18:40 Inserted saline lock: 20 gauge in right upper arm, using aseptic technique. ,using nj1 aseptic technique. Ultrasound guided. Catheter tip well visualized within vasculature during placement. Blood collected. 19:33 Johanna Perea MD is Hospitalizing Provider. ms3 20:05 No provider procedures requiring assistance completed. nj1 22:16 Patient admitted, IV remains in place. jb4 Administered Medications: 21:00 Drug: Cefepime IVPB 1 grams IVPB at 200 ml/hr once over 30 mins; (mix in NS 100 mL) nj1 Route: IVPB; Rate: 200 ml/hr; Infused Over: 30 mins; Site: right upper arm; Outcome: 19:33 Decision to Hospitalize by Provider. ms3 22:15 Admitted to Med/surg accompanied by nurse, room 206, with chart, jb4 22:15 Condition: stable 22:15 Discharge instructions given to patient, Instructed on the need for admit, Demonstrated understanding of instructions, 22:17 Patient left the ED. jb4 Signatures: Dispatcher [employer] EDMA Adriel Guerreroi tm3 Lucio Laws, RN RN jb4 Deb Gardiner RN RN ap3 Joo Garcia DO DO ms3 Darling Chavez, RN RN nj1 Iesha Damon im
--- NOTE | 2023-06-05 19:34 | EDPHYS ---
Physician Documentation [facility] Name: Deb Ford Age: 47 yrs Sex: Female : 1975 Arrival Date: 06/05/2023 Time: 16:50 Bed 20 Private MD: ED Physician Joo Garcia HPI: 06/05 21:56 This 47 yrs old Female presents to ER via Wheelchair with complaints of Chest Pain, ms3 Picc line. 21:56 47-year-old female with past medical history of arachnoiditis, left foot drop, chronic ms3 back pain, chronic regional pain syndrome presents under direction of Dr. Bowden's office for PICC line placement for ESBL urinary tract infection. Patient notes she has also had chest pain since yesterday. Patient rates her discomfort a 5/10. Patient states sitting up makes the pain worse and laying down makes the pain better.. Historical: - Allergies: 17:03 Bactrim; ap3 17:03 Erythromycin; ap3 17:03 Macrobid; ap3 17:03 PENICILLINS; ap3 17:04 Sulfa (Sulfonamide Antibiotics); ap3 - PMHx: 17:03 Arachnitis; Enlarged bile duct; Left Footdrop; ap3 17:04 Chronic back pain; ap3 - Immunization history:: Client reports receiving the 2nd dose of the Covid vaccine. - Social history:: Smoking status: Patient denies any tobacco usage or history of. ROS: 21:56 Constitutional: Negative for fever, and chills. Neck: Negative for injury, pain, and ms3 swelling, 21:56 Respiratory: Negative for shortness of breath, cough, wheezing, and pleuritic chest pain, Abdomen/GI: Negative for abdominal pain, nausea, vomiting, diarrhea, and constipation, MS/Extremity: Negative for injury and deformity, Skin: Negative for injury, rash, and discoloration, 21:56 Cardiovascular: Positive for chest pain, 21:56 All other systems are negative, Exam: 19:28 ECG was reviewed by the Attending Physician. ms3 21:56 Constitutional: This is a well developed, well nourished patient who is awake, alert, ms3 and in no acute distress. Head/Face: Normocephalic, atraumatic. Neck: Trachea midline, no cervical lymphadenopathy. Supple, full range of motion without nuchal rigidity, or vertebral point tenderness. No Meningismus. Chest/axilla: Normal chest wall appearance and motion. Nontender with no deformity. Cardiovascular: Regular rate and rhythm with a normal S1 and S2. No gallops, murmurs, or rubs. Normal PMI, no JVD. No pulse deficits. Respiratory: Lungs have equal breath sounds bilaterally, clear to auscultation and percussion. No rales, rhonchi or wheezes noted. No increased work of breathing, no retractions or nasal flaring. Abdomen/GI: Soft, non-tender, with normal bowel sounds. No distension or tympany. No guarding or rebound. No evidence of tenderness throughout. Skin: Warm, dry with normal turgor. Normal color with no rashes, no lesions, and no evidence of cellulitis. MS/ Extremity: Pulses equal, no cyanosis. Neurovascular intact. Full, normal range of motion. Vital Signs: 17:00 BP 111 / 78; Pulse 91; Resp 18; Temp 97.8; Pulse Ox 96% ; Weight 48.53 kg; Pain 5/10; ap3 19:41 BP 107 / 72; Pulse 73; Resp 14; Pulse Ox 99% on R/A; nj1 20:30 BP 109 / 74; Pulse 75; Resp 16; Pulse Ox 100% ; nj1 21:00 BP 99 / 63; Pulse 74; Resp 16; Pulse Ox 99% on R/A; jb4 17:00 Pain Scale: Adult ap3 MDM: 17:14 Patient medically screened. ms3 21:57 Differential diagnosis: abnormal EKG, acute myocardial infarction, acute pericarditis, ms3 coronary artery disease chest wall pain, Multidrug-resistant urinary tract infection. HEART Score: History: Slightly Suspicious (0), ECG: Normal (0), Age: > 45 and < 65 years (1), Risk Factors: No Risk Factors Known (0), Troponin: < or = 1 x Normal Limit (0), Total Score = 1. Data reviewed: vital signs, nurses notes, and as a result, I will admit patient. Consideration of Admission/Observation Patient was admitted/placed on observation. Management of patient was discussed with the following: Hospitalist: Discussed case with Dr Perea. I considered the following discharge prescriptions or medication management in the emergency department Medications were administered in the Emergency Department. See MAR. Independent interpretation of the following test(s) in the Emergency Department EKG: See my EKG interpretation above. Historians other than the Patient: Spouse/Significant Other: Patient's . Counseling: I had a detailed discussion with the patient and/or guardian regarding the historical points, exam findings, and any diagnostic results supporting the discharge/admit diagnosis, lab results, radiology results, the need for further work-up and treatment in the hospital. ED course: Discussed labs, EKG, chest x-ray with the patient and her . Discussed urine sensitivity sent from Dr. Bowden's office with patient and her . Patient with ESBL E. coli sensitive to cefepime. Bacteria also sensitive to Macrobid and Bactrim; however, patient states she is allergic to those medications. 06/05 17:15 Order name: Basic Metabolic Panel; Complete Time: 19:28 ms3 06/05 17:15 Order name: CBC with Diff; Complete Time: 19:28 ms3 06/05 17:15 Order name: LFT's; Complete Time: 19:28 ms3 06/05 17:15 Order name: Magnesium; Complete Time: 19:28 ms3 06/05 17:15 Order name: Troponin HS; Complete Time: 19:28 ms3 06/05 19:14 Order name: CBC Smear Scan; Complete Time: 19:28 EDMS 06/05 19:29 Order name: Procalcitonin EDMS 06/05 19:29 Order name: Urinalysis W/Microscopic EDMS 06/05 19:35 Order name: CBC with Automated Diff EDMS 06/05 19:35 Order name: CBC with Automated Diff EDMS 06/05 19:35 Order name: Comprehensive Metabolic Panel EDMS 06/05 19:35 Order name: Comprehensive Metabolic Panel EDMS 06/05 19:35 Order name: Troponin High Sensitivity EDMS 06/05 19:35 Order name: Troponin High Sensitivity EDMS 06/05 19:35 Order name: Troponin High Sensitivity EDMS 06/05 17:15 Order name: XRAY Chest (1 view); Complete Time: 18:06 ms3 06/05 17:15 Order name: EKG; Complete Time: 17:15 ms3 06/05 17:15 Order name: Cardiac monitoring; Complete Time: 17:15 ms3 10/17 17:15 Order name: EKG - Nurse/Tech; Complete Time: 18:21 ms3 06/05 17:15 Order name: IV Saline Lock; Complete Time: 18:50 ms3 06/05 17:15 Order name: Labs collected and sent; Complete Time: 18:50 ms3 06/05 17:15 Order name: O2 Per Protocol; Complete Time: 17:15 ms3 06/05 17:15 Order name: O2 Sat Monitoring; Complete Time: 17:16 ms3 EC:28 Rate is 85 beats/min. Rhythm is regular. QRS [place] is Normal. [place] interval is normal. QRS ms3 interval is normal. QT interval is normal. Clinical impression: Normal ECG. Interpreted by me. Reviewed by me. Administered Medications: 21:00 Drug: Cefepime IVPB 1 grams IVPB at 200 ml/hr once over 30 mins; (mix in NS 100 mL) nj1 Route: IVPB; Rate: 200 ml/hr; Infused Over: 30 mins; Site: right upper arm; Disposition Summary: 06/05/23 19:33 Hospitalization Ordered Notes: Hospitalization Status: Inpatient Admission ms3 Provider: Johanna Perea ms3 Location: Telemetry/MedSurg (Inpatient) ms3 Condition: Stable ms3 Problem: new ms3 Symptoms: are unchanged ms3 Bed/Room Type: [facility] Room Assignment: [facility](06/05/23 21:07) Diagnosis - Multidrug resistant UTI ms3 - Chest pain, unspecified ms3 Forms: - Medication Reconciliation Form ms3 - SBAR form ms3 - Leadership Thank You Letter ms3 Signatures: Dispatcher [employer] Shanti Gross RN RN cg Deb Gardiner RN DAJA [email or web address] Joo Garcia DO DO ms3 Darling Chavez RN RN nj1 Corrections: (The following items were deleted from the chart) 21:07 19:33 ms3 cg 21:57 19:28 ECG was reviewed by the Attending Physician. ms3 ms3
[2023-06-05] MEDS ORDERED: CEFEPIME 1 GM/VIAL ONE (20:56)
[2023-06-05] MEDS ORDERED: NA CHLORIDE 0.9% 100 ML ONE (20:57)
[2023-06-05] MEDS: NA CHLORIDE 0.9% 1,000 ML IV SCH (23:21)
[2023-06-05 23:54] VITALS: BMI 21.7
[2023-06-06] MEDS: NA CHLORIDE 0.9% 1,000 ML IV SCH ×2 (06:00→16:24)
[2023-06-06 08:37] LABS: Absolute Lymphocytes (CBC) 1.7 K/uL (0.7-4.9); Hematocrit 37.7 % (36.0-45.0); Lymphocytes % 49.5 % (15.3-44.8); MCV 91.4 fL (80-100); MPV 6.8 fL (7.6-11.3); Platelets 188 thou/uL (152-406); RBC Red Blood Cell Count 4.12 M/uL (3.86-4.86)
[2023-06-06 08:59] LABS: Albumin 3.4 g/dL (3.4-5.0); Bilirubin Total 0.2 mg/dL (0.2-1.0); Protein, Total 6.2 g/dL (6.4-8.2)
[2023-06-06] MEDS: Mupirocin NASAL 2 APPL/1 GM TUBE NAS SCH ×2 (09:06→22:29)
[2023-06-06] MEDS: ONDANSETRON 4 MG/2 ML VIAL IV PRN (10:46)
--- NOTE | 2023-06-06 11:32 | P.CNS ---
Date of Consult: 06/06/23 Reason for Consult: ESBL UTI History of Present Illness: Patient is a 47 yo female with a past medical history of gastroparesis, prolapsed bladder and uterus requiring mesh placement in 2004 with revision in 2005 and recurrent UTIs who was instructed to come to the hospital by her PCP due to urine cultures resulting with E.coli ESBL. Of note, patient has had 5 urinary tract infections over the past year for which she was treated with Cephalexin and/or Ciprofloxacin PO. Allergies nitrofurantoin [From Macrobid] Allergy (Verified 06/05/23 23:57) Hives Penicillins Allergy (Verified 06/05/23 23:57) Hives sulfamethoxazole [From Bactrim] Allergy (Verified 06/05/23 23:57) Hives trimethoprim [From Bactrim] Allergy (Verified 06/05/23 23:57) Hives erythromycin base Adverse Reaction (Verified 06/05/23 23:58) Hives Home Medications: Carbamazepine [Carbamazepine ER] 200 mg PO BID 08/21/22 Mexiletine HCl [Mexitil*] 150 mg PO BID 08/21/22 Ondansetron [Zuplenz] 4 mg SL DAILY PRN 08/21/22 Pregabalin [Lyrica] 100 mg PO BID 08/21/22 Sumatriptan [Imitrex*] 6 mg SQ PRN PRN 08/21/22 Sumatriptan [Imitrex*] 100 mg PO BIDP PRN 08/21/22 Topiramate 50 mg PO BEDTIME 08/21/22 traMADol HCL [Ultram*] 200 mg PO DAILY 08/21/22 Mexiletine HCl [Mexitil*] 150 mg PO BID 06/06/23 buprenorphine HCL [Buprenorphine HCl] 8 mg PO BID 06/06/23 - Past Medical/Surgical History Diabetic: No -: gastroparesis -: foot drop to L leg -: chronic back pain -: hysterectomy -: back surgeries x9 -: gallblader and appendix removal -: abd hernia -: prolapse bladder -: Spinal adhesions, Cauda Equina Syndrom, CRPS -: 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 -: - Family History Mother Medical History: Hypertension, Cancer Father Medical History: Hypertension, Cancer - Social History Alcohol use: No CD- Drugs: No Caffeine use: Yes Place of Residence: Home Review of Systems General: Weakness Gastrointestinal: Constipation Genitourinary: Dysuria Physical Examination Temp Pulse Resp BP Pulse Ox 98.6 F 65 16 91/54 L 98 06/06/23 08:00 06/06/23 08:00 06/06/23 08:00 06/06/23 08:00 06/06/23 08:00 General: Alert, In no apparent distress, Oriented x3 HEENT: Atraumatic, Normocephalic Neck: Supple Respiratory: Clear to auscultation bilaterally, Normal air movement (on room air) Cardiovascular: No edema, Regular rate/rhythm Gastrointestinal: Hypoactive, Non-distended Neurological: Normal speech, Normal tone, Normal affect Laboratory Data - Reviewed Microbiology Data - Reviewed Imagings Data: - No imaging data available Conclusions/Impression: Problem List Urinary Tract Infection, recurrent Gastroparesis Hx Bladder and Uterine prolapse abdominal mesh allergy to penicillins, sulfa, trimethoprim and nitrofurantoin. Recurrent Urinary Tract Infection, Escherichia coli ESBL - Urine culture report from patient's primary care provider resulting with Escherichia coli ESBL. - Patient reports 5 urinary tract infections (2 pyelonephritis) within the past year, treated with cephalexin and ciprofloxacin. - Started on Meropenem 06/06 No leukocytosis. Afebrile. Recommendations - Started on Meropenem 06/06. Continue antibiotic therapy for 7 days. - PICC line placement pending - Obtain CT abdomen pelvis Case discussed with Deisi Francis
--- NOTE | 2023-06-06 12:25 | EKG ---
Test Date: 2023-06-05 Test Time: 18:17:50 Statistical Geneticist: ROSA MEASUREMENT RESULTS: Intervals: Rate: 85 RI: 142 QRSD: 86 QT: 382 QTc: 454 [place]: P: 74 RI: 142 QRS: 78 T: 64 INTERPRETIVE STATEMENTS: Normal sinus rhythm Normal ECG Compared to ECG 08/21/2022 00:30:23 ST (T wave) deviation no longer present Electronically Signed On 06-06-23 12:23:39 CDT by Jerad Che
[2023-06-06] MEDS: METOCLOPRAMIDE 10 MG/2mL INJ IV SCH ×2 (15:01→22:28)
[2023-06-06] MEDS: Meropenem 1,000 MG in NA CHLORIDE 0.9% 100 ML IV SCH (16:24)
[2023-06-06 22:45] LABS: Specific Gravity 1.019 (1.005-1.030); Urine Bacteria <20 /HPF (<20); Urine Bilirubin NEGATIVE (Negative); Urine Blood Negative (Negative); Urine Clarity Turbid (Clear); Urine Color Light-Yellow (Yellow); Urine Glucose NEGATIVE (Negative); Urine Mucus Slight /HPF (None Seen); Urine Protein NEGATIVE (Negative); Urine RBC None Seen /HPF (None Seen); Urine Urobilinogen Normal (Normal)
[2023-06-07] MEDS: Meropenem 1,000 MG in NA CHLORIDE 0.9% 100 ML IV SCH ×3 (00:44→17:33)
[2023-06-07 01:59] VITALS: O2SAT 97
[2023-06-07] MEDS: NA CHLORIDE 0.9% 1,000 ML IV SCH ×4 (02:00→17:33)
[2023-06-07] MEDS: MIDODRINE HCL 5 MG TABLET PO SCH ×3 (04:56→14:25)
[2023-06-07] MEDS: METOCLOPRAMIDE 10 MG/2mL INJ IV SCH ×2 (04:57→11:07)
--- NOTE | 2023-06-07 07:58 | P.PN ---
Date of Service: 06/07/23 Reason for Consult: ESBL UTI Subjective: Patient seen and examined at bedside. + urinary frequency improvement in flank pain No acute events reported overnight. Physical Examination Temp Pulse Resp BP Pulse Ox 97.8 F 71 17 95/60 98 06/07/23 00:00 06/07/23 00:00 06/07/23 00:00 06/07/23 05:37 06/07/23 00:00 General: Alert, In no apparent distress, Oriented x3 HEENT: Atraumatic, Normocephalic. Respiratory: Clear to auscultation bilaterally, Normal air movement. On room air. Cardiovascular: No edema, Regular rate/rhythm Gastrointestinal: Normoactive bowel sounds. Non-distended. Non-tender. Neurological: Normal speech, Normal tone, Normal affect Laboratory Data - Reviewed Microbiology Data - Reviewed Imagings Data: - No imaging data available Medications List: Reviewed Assessment and Plan Problem List Urinary Tract Infection, recurrent Gastroparesis Hx Bladder and Uterine prolapse abdominal mesh allergy to penicillins, sulfa, trimethoprim and nitrofurantoin. Recurrent Urinary Tract Infection, Escherichia coli ESBL - Urine culture report from patient's primary care provider resulting with Escherichia coli ESBL. - Patient reports 5 urinary tract infections (2 pyelonephritis) within the past year, treated with cephalexin and ciprofloxacin. - Started on Meropenem 06/06 No leukocytosis. Afebrile. Recommendations - Started on Meropenem 06/06. Continue antibiotic therapy for 7 days. - Recurrent UTI and pyelonephritis x2 since August: Renal ultrasound pending. Follow up with results. - PICC line placement pending - Recommend following up with Urologist/Social Services Aide as outpatient Case discussed with Deisi Francis
[2023-06-07] MEDS: Mupirocin NASAL 2 APPL/1 GM TUBE NAS SCH ×2 (08:47→22:27)
[2023-06-07] MEDS: ONDANSETRON 4 MG/2 ML VIAL IV PRN ×2 (08:47→14:24)
[2023-06-07] MEDS ORDERED: HYDROMORPHONE HCL 0.5 MG/0.5 ML INJ IV ONE (15:48)
--- NOTE | 2023-06-07 16:13 | RAD REPORT ---
EXAM DESCRIPTION: RADChest Single View06/07/2023 3:39 pm CLINICAL HISTORY: PICC line insertion (right upper arm) COMPARISON: Chest Single View dated 06/05/2023; Chest Single View dated 08/20/2022 TECHNIQUE: Portable AP view of the chest. FINDINGS: Right arm PICC has been placed, with catheter tip terminating in the distal SVC. Spinal st imulator electrodes unchanged in position. The lungs are clear. No pneumothorax or effusion. The car diomediastinal contours are unremarkable. IMPRESSION: Satisfactory positioning of right arm PICC. No acute cardiopulmonary process.
[2023-06-07] MEDS ORDERED: ONDANSETRON 4 MG/2 ML VIAL IV ONE (17:17)
--- NOTE | 2023-06-07 18:26 | RAD REPORT ---
EXAM DESCRIPTION: US - Renal Ultrasound-Complete - 06/07/2023 2:14 pm CLINICAL HISTORY: recurrent uti, pyelo COMPARISON: No comparisons TECHNIQUE: Sonographic grayscale and color flow images of the kidneys and bladder were obtained. FINDINGS: Both kidneys are normal in size, shape and echotexture. The right kidney measures 10.1 cm in length. Mild right hydronephrosis. No echogenic calculi, focal m ass or perinephric fluid. The left kidney measures 10.8 cm in length. No hydronephrosis, focal mass or perinephric fluid. No ec hogenic calculi. The urinary bladder is incompletely distended limiting evaluation. IMPRESSION: Mild right hydronephrosis. Limited evaluation of the urinary bladder given suboptimal distention.
[2023-06-07] MEDS ORDERED: METHYLPREDNISOLONE 125 MG INJ IV ONE (19:10)
[2023-06-07] MEDS ORDERED: METOCLOPRAMIDE 10 MG/2mL INJ IV SCH (20:00)
[2023-06-07] MEDS ORDERED: ERTAPENEM NA 1 GM in NA CHLORIDE 0.9% 100 ML IVPB SCH (20:00)
[2023-06-07] MEDS ORDERED: PROMETHAZINE INJ 25 MG/ML AMP IV ONE (20:08)
[2023-06-07] MEDS ORDERED: clonazePAM 0.5 MG TAB PO SCH (21:00)
[2023-06-08] MEDS ORDERED: TRAMADOL HCL 50 MG TAB PO PRN (00:28)
[2023-06-08] MEDS ORDERED: SUMATRIPTAN SUCCI 50 MG TAB PO PRN (00:28)
[2023-06-08] MEDS: NA CHLORIDE 0.9% 1,000 ML IV SCH ×2 (03:20→11:21)
[2023-06-08] MEDS ORDERED: METOCLOPRAMIDE 10 MG/2mL INJ IV SCH (04:00)
[2023-06-08 07:32] LABS: Absolute Lymphocytes (CBC) 1.2 K/uL (0.7-4.9); Hematocrit 32.9 % (36.0-45.0); Lymphocytes % 25.7 % (15.3-44.8); MCV 89.6 fL (80-100); MPV 7.2 fL (7.6-11.3); Platelets 200 thou/uL (152-406); RBC Red Blood Cell Count 3.67 M/uL (3.86-4.86)
[2023-06-08 08:05] LABS: ALT/SGPT 21 U/L (13-56); AST/SGOT 15 U/L (15-37); Alkaline Phosphatase 67 U/L (45-117); BUN Blood Urea Nitrogen 8 mg/dL (7-18); Bicarbonate 27 mEq/L (21-32); Bilirubin Total 0.2 mg/dL (0.2-1.0); Glomerular Filtration Rate 117 ml/min (=/>90); Glucose Level 163 mg/dL (74-106); Magnesium 1.9 mg/dL (1.6-2.4); NT PRO-BNP 917 pg/mL (<125); Phosphorus 3.1 mg/dL (2.5-4.9); Potassium 3.7 mEq/L (3.5-5.1); Protein, Total 5.3 g/dL (6.4-8.2); Sodium Level 143 mEq/L (136-145)
[2023-06-08 08:06] LABS: C-Reactive Protein < 2.90 mg/L (<3.00)
--- NOTE | 2023-06-08 08:07 | RAD REPORT ---
EXAM DESCRIPTION: [place] Single View06/08/2023 5:50 am CLINICAL HISTORY: Chest pain COMPARISON: June 05, 2023 FINDINGS: The lungs appear clear of acute infiltrate. The heart is normal size. PICC line in place IMPRESSION: No acute abnormalities displayed
--- NOTE | 2023-06-08 08:07 | RAD REPORT ---
EXAM DESCRIPTION: RAD - Abdomen 1 View (KUB) - 06/08/2023 5:50 am CLINICAL HISTORY: Abdomen pain FINDINGS: The bowel gas pattern is unremarkable. A large amount stool is present throughout colon. Cholecystectomy Calcifications within the pelvis may represent phleboliths. Neurostimulator device noted
--- NOTE | 2023-06-08 08:15 | P.PN ---
Date of Service: 06/08/23 Reason for Consult: ESBL UTI Subjective: Patient seen and examined at bedside. In no apparent distress. + urinary frequency + nausea Plan of care discussed with patient at bedside. Physical Examination Temp Pulse Resp BP Pulse Ox 97.3 F 74 18 99/59 L 99 06/08/23 04:00 06/08/23 04:00 06/08/23 04:00 06/08/23 04:00 06/08/23 04:00 General: Alert, In no apparent distress, Oriented x3 HEENT: Atraumatic, Normocephalic. Respiratory: Clear to auscultation bilaterally, Normal air movement. On room air. Cardiovascular: No edema, Regular rate/rhythm Gastrointestinal: Normoactive bowel sounds. Non-distended. Non-tender. Neurological: Normal speech, Normal tone, Normal affect Laboratory Data - Reviewed Microbiology Data - Reviewed Imagings Data: - Reviewed Medications List: Reviewed Assessment and Plan Problem List Urinary Tract Infection, recurrent Gastroparesis Hx Bladder, Uterine and Rectal Prolapse abdominal mesh allergy to penicillins, sulfa, trimethoprim and nitrofurantoin. Recurrent Urinary Tract Infection, Escherichia coli ESBL - Urine culture report from patient's primary care provider resulting with Escherichia coli ESBL. - Patient reports 5 urinary tract infections (2 pyelonephritis) within the past year, treated with cephalexin and ciprofloxacin. - Started on Meropenem 06/06 No leukocytosis. Afebrile. - Renal ultrasound 06/07: "Mild right hydronephrosis. Limited evaluation of the urinary bladder given suboptimal distention." - KUB XR: "The bowel gas pattern is unremarkable. A large amount stool is present throughout colon. Cholecystectomy. Calcifications within the pelvis may represent phleboliths. Neurostimulator device noted." Recommendations - Due to recurrent UTIs, now E.coli ESBL, extensive surgical history including cervical, bladder and rectal prolapse, history of fistula, recommend continuing antibiotic therapy for 14 days. - Started on Meropenem 06/06. Switched to Ertapenem prior to discharge home with home health. - PICC line in place - Recommend following up with Urologist/[employer] as outpatient Case discussed with Deisi Francis
--- NOTE | 2023-06-08 08:34 | P.HP ---
Certification for Inpatient Patient admitted to: Inpatient With expected LOS: >2 Midnights Patient will require the following post-hospital care: None Practitioner: I am a practitioner with admitting privileges, knowledge of patient current condition, hospital course, and medical plan of care. Services: Services provided to patient in accordance with Admission requirements found in Title 42 Section 412.3 of the Code of Federal Regulations Patient History Date of Service: 06/05/23 Reason for admission: Patient admitted with 50,000cfu ESBL E. 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 coli from her PCP. He wanted her sent in for IV antibiotics. She is afebrile. Labs are pending. She will be admitted to the hospital for IV antibiotic therapy. However, she only has 50,000 colony-forming units in her urine analysis has not been obtained. I will get a UA prior to antibiotics being started. Once that urinalysis analysis is obtained I will get antibiotics started. We will also go ahead and check a procalcitonin level. Additional labs will be monitored as needed. Patient does appear to be a little anxious and is adamant about her treatment regimen. I will monitor her closely over the next 24 to 48 hours. Once we get the PICC line obtained and IV antibiotics started I should be able to discharge her home pending any other worrisome issues. Allergies nitrofurantoin [From Macrobid] Allergy (Verified 06/05/23 23:57) Hives Penicillins Allergy (Verified 06/05/23 23:57) Hives sulfamethoxazole [From Bactrim] Allergy (Verified 06/05/23 23:57) Hives trimethoprim [From Bactrim] Allergy (Verified 06/05/23 23:57) Hives erythromycin base Adverse Reaction (Verified 06/05/23 23:58) Hives Home Medications: Carbamazepine [Carbamazepine ER] 200 mg PO BID 08/21/22 Mexiletine HCl [Mexitil*] 150 mg PO BID 08/21/22 Ondansetron [Zuplenz] 4 mg SL DAILY PRN 08/21/22 Pregabalin [Lyrica] 100 mg PO BID 08/21/22 Sumatriptan [Imitrex*] 6 mg SQ PRN PRN 08/21/22 Sumatriptan [Imitrex*] 100 mg PO BIDP PRN 08/21/22 Topiramate 50 mg PO BEDTIME 08/21/22 traMADol HCL [Ultram*] 200 mg PO DAILY 08/21/22 Mexiletine HCl [Mexitil*] 150 mg PO BID 06/06/23 buprenorphine HCL [Buprenorphine HCl] 8 mg PO BID 06/06/23 - Past Medical/Surgical History Has patient received pneumonia vaccine in the past: No Diabetic: No -: gastroparesis -: foot drop to L leg -: chronic back pain -: hysterectomy -: back surgeries x9 -: gallblader and appendix removal -: abd hernia -: prolapse bladder -: Spinal adhesions, Cauda Equina Syndrom, CRPS -: 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 moist/pink, EOMI, Sclerae nonicteric Neck: Supple, 2+ carotid pulse no bruit, No LAD, Without JVD or thyroid abnormality Respiratory: Clear to auscultation bilaterally, Normal air movement Cardiovascular: Regular rate/rhythm, Normal S1 S2 Gastrointestinal: Normal bowel sounds, Soft and benign, Non-distended, No tenderness, No rebound, No guarding Musculoskeletal: No clubbing, No swelling, No tenderness Integumentary: No rashes Neurological: Sensation intact, Cranial nerves 3-12 intact, Normal affect (foot drop), Other Lymphatics: No axilla or inguinal lymphadenopathy Assessment & Plan - Problems (Diagnosis) (1) Type II CRPS (complex regional pain syndrome) Current Visit: Yes Status: Acute (2) Migraine Current Visit: Yes Status: Acute (3) Extended spectrum beta-lactamase (ESBL) 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 Continue with IV antibiotics once urine analysis is obtained 2. Patient's urine cultures positive for ESBL E. coli; patient only had 40,000- 50,000 CFU's 3. Treatment for gastroparesis as needed. She says she normally uses Phenergan for her gastroparesis. 4. Continue with Tegretol for migraines 5. Continue with medication for neuropathy; ? Lyrica. We will be check her home medication list 6. Continue pain medical treatment. Discharge Plan: Home Plan to discharge in: Greater than 2 days - Advance Directives Does patient have a Living Will: No Does patient have a Durable POA for Healthcare: No - Code Status/Comfort Care Code Status Assessed: Yes Code Status: Full Code Critical Care: No Time Spent Managing PTS Care (In Minutes): 45
--- NOTE | 2023-06-08 08:42 | P.PN ---
Subjective Date of Service: 06/06/23 Chief Complaint: Patient admitted with 50,000cfu ESBL E. coli/PCP wanting IV abx Patient is doing well with no new complaints. Patient clinical symptoms are stable. Patient denies any new complaints. She has nausea that is persistent. She has headaches that are occasional. Her blood pressure does fluctuate but she appears to be asymptomatic. Arranging for IV antibiotics and PICC line placement. Review of Systems 10-point ROS is otherwise unremarkable Physical Examination - Vital Signs Temperature: 97.3 F Blood Pressure: 99/59 Pulse: 74 Respirations: 18 Pulse Ox (%): 99 - Physical Exam General: Alert, In no apparent distress, Oriented x3 Respiratory: Clear to auscultation bilaterally, Normal air movement Cardiovascular: Regular rate/rhythm, Normal S1 S2, No murmurs Gastrointestinal: Normal bowel sounds, Soft and benign, Non-distended, No tenderness Musculoskeletal: No clubbing, No swelling, No tenderness Neurological: Sensation intact, Cranial nerves 3-12 intact - Studies Medications List Reviewed: Yes Assessment & Plan - Problems (Diagnosis) (1) Type II CRPS (complex regional pain syndrome) Current Visit: Yes Status: Acute (2) Migraine Current Visit: Yes Status: Acute (3) 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 Continue with IV antibiotics once urinanalysis is obtained 2. Patient's urine cultures positive for ESBL E. coli; patient only had 40,000- 50,000 CFU's; repeat is pending 3. Treatment for gastroparesis as needed. She says she normally uses Phenergan for her gastroparesis. 4. Continue with Tegretol for migraines 5. Continue with medication for neuropathy; ? Lyrica. We will be check her home medication list 6. Continue pain medical treatment. Discharge Plan: Home Plan to discharge in: Greater than 2 days - Advance Directives Does patient have a Living Will: No Does patient have a Durable POA for Healthcare: No - Code Status/Comfort Care Code Status: Full Code Critical Care: No Time Spent Managing PTS Care (In Minutes): 35
--- NOTE | 2023-06-08 08:49 | P.PN ---
Date of Service: 06/07/23 Subjective Patient is doing well with no new complaints. Patient clinical symptoms are stable. Patient denies any new complaints. She has nausea that is persistent. She has headaches that are occasional. Her blood pressure does fluctuate but she appears to be asymptomatic. Arranging for IV antibiotics and PICC line placement. Review of Systems 10-point ROS is otherwise unremarkable Physical Examination - Vital Signs reviewed - Physical Exam General: Alert, In no apparent distress, Oriented x3 Respiratory: Clear to auscultation bilaterally, Normal air movement Cardiovascular: Regular rate/rhythm, Normal S1 S2, No murmurs Gastrointestinal: Normal bowel sounds, Soft and benign, Non-distended, No tenderness Musculoskeletal: No clubbing, No swelling, No tenderness Neurological: Sensation intact, Cranial nerves 3-12 intact Assessment & Plan - Problems (Diagnosis) (1) Type II CRPS (complex regional pain syndrome) Current Visit: Yes Status: Acute (2) Migraine Current Visit: Yes Status: Acute (3) 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 Continue with IV antibiotics once urinanalysis is obtained 2. Patient's urine cultures positive for ESBL E. coli; patient only had 40,000- 50,000 CFU's; repeat Ua is unremarkable; pt expectation as per her PCP is to get abx 3. Treatment for gastroparesis as needed. She says she normally uses Phenergan for her gastroparesis. 4. Continue with Tegretol for migraines 5. Continue with medication for neuropathy; ? Lyrica. We will be check her home medication list 6. Continue pain medical treatment. Discharge Plan: Home Plan to discharge in: Greater than 2 days - Advance Directives Does patient have a Living Will: No Does patient have a Durable POA for Healthcare: No - Code Status/Comfort Care Code Status: Full Code Critical Care: No Time Spent Managing PTS Care (In Minutes): 35
[2023-06-08] MEDS: Mupirocin NASAL 2 APPL/1 GM TUBE NAS SCH (09:00)
[2023-06-08] MEDS ORDERED: ERTAPENEM SODIUM 1 GM VIAL IVPB SCH (09:00)
[2023-06-08] MEDS ORDERED: MEXILETINE HCL 150 MG CAP PO SCH (09:00)
[2023-06-08] MEDS ORDERED: PREGABALIN 50 MG CAP PO SCH (09:00)
--- NOTE | 2023-06-08 12:09 | P.DS ---
Admission Date: 06/05/23 Discharge Date: 06/08/23 Disposition: ROUTINE DISCHARGE Discharge Condition: GOOD Reason for Admission: Patient admitted with 50,000cfu ESBL E. 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 Current Visit: Yes Status: Acute (2) Gastroparesis Current Visit: Yes Status: Acute (3) Migraine Current Visit: Yes Status: Acute (4) Type II CRPS (complex regional pain syndrome) Current Visit: Yes Status: Acute (5) UTI (urinary tract infection) Current Visit: No Status: Acute Qualifiers: Urinary tract infection type: acute cystitis Hematuria presence: without hematuria Qualified Code(s): N30.00 - Acute cystitis without hematuria Brief History of Present Illness: Patient is a 47-year-old female wih a lot of chronic medical issues including gastroparesis most likely from chronic pain treatment, complex regional pain syndrome (CRPS), foot drop from cauda equina syndrome and numerous back surgery, multiple UTIs. 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 She presents to the hospital because she was diagnosed with ESBL E. coli by her PCP. PCP sent her to ED for IV antibiotics. She was afebrile. Patient admitted for further management. Hospital Course: Patient was admitted to the medical floor and started on IV meropenem. Renal ultrasound done showed mild right hydronephrosis. Patient developed intermittent period of hypotension. Patient suspected to have had allergic reaction to midodrine and was given IV steroid. PICC line was placed for outpatient IV antibiotics. Patient seen and evaluated by infectious disease. Patient with no history of ESBL infection. Given her multiple pelvic issues including the presence of hydronephrosis, general consensus was to treat the ESBL infection with 2 weeks of IV ertapenem. CT abdomen pelvis done to further evaluate hydronephrosis showed Vital Signs/Physical Exam: Temp Pulse Resp BP Pulse Ox 97.3 F 74 18 99/59 L 99 06/08/23 08:42 06/08/23 08:42 06/08/23 08:42 06/08/23 08:42 06/08/23 08:42 General: Alert, In no apparent distress, Oriented x3 HEENT: Mucous membr. moist/pink Neck: Supple, JVD not distended Respiratory: Clear to auscultation bilaterally, Normal air movement Cardiovascular: No edema, Regular rate/rhythm, Normal S1 S2 Gastrointestinal: Normal bowel sounds, Soft and benign, Non-distended, No tenderness Musculoskeletal: No swelling Integumentary: No rashes Laboratory Data at Discharge: WBC 4.80 thou/uL (4.3-10.9) 06/08/23 07:15 Hgb 11.4 g/dL (12.0-15.0) L 06/08/23 07:15 Hct 32.9 % (36.0-45.0) L 06/08/23 07:15 Plt Count 200 thou/uL (152-406) 06/08/23 07:15 Sodium 143 mEq/L (136-145) 06/08/23 07:15 Potassium 3.7 mEq/L (3.5-5.1) 06/08/23 07:15 BUN 8 mg/dL (7-18) 06/08/23 07:15 Creatinine 0.49 mg/dL (0.55-1.02) L 06/08/23 07:15 Glucose 163 mg/dL (74-106) H 06/08/23 07:15 Phosphorus 3.1 mg/dL (2.5-4.9) 06/08/23 07:15 Magnesium 1.9 mg/dL (1.6-2.4) 06/08/23 07:15 Total Bilirubin 0.2 mg/dL (0.2-1.0) 06/08/23 07:15 AST 15 U/L (15-37) 06/08/23 07:15 ALT 21 U/L (13-56) 06/08/23 07:15 Alkaline Phosphatase 67 U/L (45-117) 06/08/23 07:15 Home Medications: Carbamazepine [Carbamazepine ER] 200 mg PO BID 08/21/22 Mexiletine HCl [Mexitil*] 150 mg PO BID 08/21/22 Ondansetron [Zuplenz] 4 mg SL DAILY PRN 08/21/22 Pregabalin [Lyrica] 100 mg PO BID 08/21/22 Sumatriptan [Imitrex*] 6 mg SQ PRN PRN 08/21/22 Sumatriptan [Imitrex*] 100 mg PO BIDP PRN 08/21/22 Topiramate 50 mg PO BEDTIME 08/21/22 traMADol HCL [Ultram*] 200 mg PO DAILY 08/21/22 Mexiletine HCl [Mexitil*] 150 mg PO BID 06/06/23 buprenorphine HCL [Buprenorphine HCl] 8 mg PO BID 06/06/23 Mineral Oil Enema [Fleet Mineral Oil Enema*] 135 ml RC ONCE #1 btl 06/08/23 New Medications: Mineral Oil Enema [Fleet Mineral Oil Enema*] 135 ml RC ONCE #1 btl Physician Discharge Instructions: -DC IV and DC home -Follow-up with PCP in 1 to 2 weeks -Follow-up with Gynecologic Urology in 1 to 2 weeks -Please call Dr. Perea at [phone] if any questions regarding hospital stay -Please call nursing station at [phone] if any nursing or medication questions -Return to the emergency room if symptoms worsen Diet: Regular Activity: Fall precautions Followup: Jay Terrazas MD [ASSOCIATE-ACTIVE - CAN ADMIT] - (Within 2 to 4-weeks. Chronic constipation and history of anal fistula.) Mu Bermeo [ACTIVE - CAN ADMIT] - (Hydronephrosis, recurrent UTI.) BLANCA PATEL MD [OUTSIDE PHYSICIAN] - 1-2 Weeks Time spent managing pt's care (in minutes): 35
[2023-06-08] MEDS ORDERED: ERTAPENEM NA 1 GM in NA CHLORIDE 0.9% 100 ML IVPB SCH (15:00)
[2023-06-08] MEDS: ONDANSETRON 4 MG/2 ML VIAL IV PRN (17:43)
[2023-06-08 18:37] VITALS: BP 104/63; TEMP 97.8
--- NOTE | 2023-06-08 20:03 | RAD REPORT ---
EXAM DESCRIPTION: CT - Abdomen Pelvis W Contrast - 06/08/2023 3:34 pm CLINICAL HISTORY: Hydronephrosis/functional constipation COMPARISON: No comparisons TECHNIQUE: Thin cut axial CT imaging of the abdomen and pelvis was performed following intravenous a dministration of 100 mL Isovue 300. Multiplanar reformats were generated and reviewed. All CT scans are performed using dose optimization technique as appropriate and may include automated exposure control or mA/KV adjustment according to patient size. FINDINGS: No suspicious findings in the lung bases. Streaky opacities on the right, favored to repre sent atelectasis. The liver, adrenal glands, and pancreas show no suspicious findings. Small subcapsular ovoid well-cir cumscribed hypoattenuating lesions along the inferior pancreas, may represent small cysts or hemangio mas, the largest measuring 1 cm. Gallbladder was surgically removed. Symmetric renal function is seen with no hydronephrosis or suspicious renal mass. No radiopaque calcu li. No dilated bowel loops or bowel wall thickening. No free air, free fluid or inflammatory stranding. N o hernia, mass or bulky lymphadenopathy. Status post hysterectomy. The urinary bladder is without sig nificant finding. No suspicious bony findings. Sizable disc extrusion present at L2-3, may result in a degree of canal stenosis, not well evaluated. Spinal stimulator battery pack in place. IMPRESSION: No acute intra-abdominal process. No radiopaque calculi or evidence of obstruction. Incidental findings as above.
[2023-06-08] MEDS ORDERED: MINERAL OIL 30 ML UCUP PO SCH (21:00)
[2023-06-08] MEDS ORDERED: TOPIRAMATE 25 MG TAB PO SCH (21:00)
== END 2023-06-08 20:32 | disposition home health service (06) | DRG 690 ==
LOC: ER 16:50 → ERHOLD 19:27 → 2ND 22:09
PROVIDERS: ADMIT Hospitalist; ATTEND Internal Medicine
PROC: 02HV33Z Insertion of Infusion Device into Superior Vena Cava, Percutaneous Approach (ICD-10-PCS; principal; 2023-06-07)
DX: N13.6 Pyonephrosis (principal); Z16.12 Extended spectrum beta lactamase (ESBL) resistance; K59.00 Constipation, unspecified; K31.84 Gastroparesis; G62.9 Polyneuropathy, unspecified; G89.4 Chronic pain syndrome; M54.9 Dorsalgia, unspecified; I95.9 Hypotension, unspecified; M21.372 Foot drop, left foot; G57.70 Causalgia of unspecified lower limb; G43.909 Migraine, unspecified, not intractable, without status migrainosus; B96.20 Unspecified Escherichia coli [E. coli] as the cause of diseases classified elsewhere; T44.4X5A Adverse effect of predominantly alpha-adrenoreceptor agonists, initial encounter; Z88.1 Allergy status to other antibiotic agents; Z88.5 Allergy status to narcotic agent; Z88.2 Allergy status to sulfonamides; Z79.899 Other long term (current) drug therapy; Z90.710 Acquired absence of both cervix and uterus; Z87.440 Personal history of urinary (tract) infections; Z87.891 Personal history of nicotine dependence
CPT/HCPCS: 36415; 36569; 71045; 74018; 74177; 76770; 80048; 80053; 80076; 81001; 82607; 83540; 83605; 83735; 83880; 84100; 84145; 84484; 85025; 85044; 86140; 93005; 96374; 99285; J0692; J1335; J2185; J2270; J2405; J2550; J2765; J2930; J7030; Q9967

== ENCOUNTER 2024-12-22 20:22 | Inpatient (IN) | payer OTHER ==
[2024-12-22] MEDS ORDERED: LORazepam 2 MG/ML VIAL ONE (20:44)
[2024-12-22 21:15] LABS: Absolute Eosinophils 0.3 K/uL (0-0.5); Absolute Lymphocytes (CBC) 2.5 K/uL (0.7-4.9); Absolute Monocytes 0.6 K/uL (0.1-1.3); Absolute Neutrophil 2.6 K/uL (1.8-8.0); Basophils % 0.5 % (0-1.3); Eosinophils % 5.6 % (0-4.4); Lymphocytes % 41.2 % (15.3-44.8); MCH 29.8 pg (27.0-35.0); MCHC 34.2 g/dL (32.0-36.0); MCV 87.1 fL (80-100); MPV 7.7 fL (7.6-11.3); Monocytes % 9.3 % (3.3-12.3); Neutrophils % 43.4 % (41.7-73.7); Nucleated Red Blood Cells % 0.1 % (0-0); Platelets 239 thou/uL (152-406); RBC Red Blood Cell Count 4.36 M/uL (3.86-4.86); Red Cell Distribution Width 12.7 % (12.1-15.2)
--- NOTE | 2024-12-22 21:17 | RAD REPORT ---
Procedure: Chest Single View HISTORY: Chest pain COMPARISON: 2022 FINDINGS: The lungs appear clear of acute infiltrate. No significant pleural effusion noted. The heart is normal size. IMPRESSION: No acute abnormality is displayed.
[2024-12-22 21:40] LABS: ALT/SGPT 18 U/L (13-56); AST/SGOT 11 U/L (15-37); Albumin/Globulin Ratio 1.3 (1.1-1.8); Alkaline Phosphatase 119 U/L (45-117); Anion Gap 9.2 mEq/L (5.0-15.0); BUN Blood Urea Nitrogen 9 mg/dL (7-18); Bicarbonate 29 mEq/L (21-32); Bilirubin Total 0.2 mg/dL (0.2-1.0); Glomerular Filtration Rate 112 ml/min (=/>90); Glucose Level 104 mg/dL (74-106); Magnesium 2.1 mg/dL (1.6-2.4); NT PRO-BNP 196 pg/mL (<125); Potassium 4.2 mEq/L (3.5-5.1); Sodium Level 138 mEq/L (136-145)
[2024-12-22 21:45] LABS: Bilirubin Direct < 0.2 mg/dL (0-0.2)
[2024-12-22] MEDS ORDERED: MORPHINE 4 MG/ML SYR ONE (21:47)
[2024-12-22] MEDS ORDERED: ONDANSETRON 4 MG/2 ML VIAL ONE (21:47)
--- NOTE | 2024-12-22 21:51 | EDPHYS ---
Physician Documentation [facility] Name: Deb Ford Age: 49 yrs Sex: Female : 1975 Arrival Date: 12/22/2024 Time: 20:22 Bed 18 Private MD: ED Physician Esdras Delgado HPI: 12/22 21:42 This 49 yrs old Female presents to ER via Wheelchair with complaints of Chest Pain. kb 21:42 Pt is a 49 year old female who presents for chest pain and shortness of breath. 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 . Historical: - Allergies: 20:37 Bactrim; ha1 20:37 Erythromycin; ha1 20:37 Macrobid; ha1 20:37 PENICILLINS; ha1 20:37 Sulfa (Sulfonamide Antibiotics); ha1 - PMHx: 20:37 Arachnitis; chronic back pain; Enlarged bile duct; Left Footdrop; Heart valve disorder; ha1 - Immunization history:: Adult Immunizations up to date. - Infectious Disease History:: Denies. - Social history:: Smoking status: Patient denies any tobacco usage or history of. ROS: 21:42 Constitutional: As per HPI kb Exam: 21:42 Constitutional: This is a well developed, well nourished patient who is awake, alert, kb and in no acute distress. Head/Face: Normocephalic, atraumatic. ENT: Moist Mucous membranes Cardiovascular: Regular rate Abdomen/GI: Soft, non-tender. No distention Skin: Warm, dry with normal turgor. Normal color. MS/ Extremity: Pulses equal, no cyanosis. Neurovascular intact. Full, normal range of motion. Neuro: Awake and alert, GCS 15, oriented to person, place, time, and situation. 21:42 ECG was reviewed by the Attending Physician. 21:42 Respiratory: Respirations: tachypnea, Vital Signs: 20:27 BP 136 / 79; Pulse 94; Resp 23 S; Temp 98.2(O); Pulse Ox 100% ; Weight 64.41 kg; Height ha1 5 ft. 2 in. ; Pain 8/10; 21:00 BP 128 / 66; Pulse 90; Resp 19; Pulse Ox 100% ; me1 22:00 BP 117 / 74; Pulse 77; Resp 18 S; Pulse Ox 98% on R/A; ha1 23:00 BP 103 / 51; Pulse 71; Resp 18 S; Pulse Ox 98% on R/A; ha1 23:53 BP 118 / 60; Pulse 74; Resp 16 S; Pulse Ox 98% on R/A; ha1 20:27 Body Mass Index 25.97 (64.41 kg, 157.48 cm) ha1 20:27 Pain Scale: Adult ha1 MDM: 20:26 Medical Screening Exam initiated kb 21:49 Differential diagnosis: pulmonary edema, CHF, acute NC, arrhythmia. Data reviewed: kb vital signs, nurses notes. Consideration of Admission/Observation Patient was admitted/placed on observation. Escalation of care including admission/observation considered. Management of patient was discussed with the following: Hospitalist: Dr Fine accepts pt for admission. Historians other than the Patient: Spouse/Significant Other: spouse. Counseling: I had a detailed discussion with the patient and/or guardian regarding the historical points, exam findings, and any diagnostic results supporting the discharge/admit diagnosis, lab results, radiology results, the need for further work-up and treatment in the hospital. 12/22 20:35 Order name: Basic Metabolic Panel; Complete Time: 21:46 kb 12/22 20:35 Order name: CBC with Diff; Complete Time: 21:17 kb 12/22 20:35 Order name: LFT's; Complete Time: 21:46 kb 12/22 20:35 Order name: Magnesium; Complete Time: 21:46 kb 12/22 20:35 Order name: NT PRO-BNP; Complete Time: 21:46 kb 12/22 20:35 Order name: Troponin HS; Complete Time: 21:46 kb 12/22 22:11 Order name: CBC with Automated Diff EDMS 12/22 22:11 Order name: CBC with Automated Diff EDMS 12/22 22:11 Order name: Comprehensive Metabolic Panel EDMS 12/22 22:11 Order name: Comprehensive Metabolic Panel EDMS 12/22 22:11 Order name: Troponin High Sensitivity EDMS 12/22 22:11 Order name: Troponin High Sensitivity EDMS 12/22 22:11 Order name: Troponin High Sensitivity EDMS 12/22 22:11 Order name: Troponin High Sensitivity EDMS 12/22 20:35 Order name: XRAY Chest (1 view); Complete Time: 21:17 kb 12/22 20:35 Order name: Cardiac monitoring; Complete Time: 21:05 kb 12/22 20:35 Order name: EKG - Nurse/Tech; Complete Time: 20:38 kb 12/22 20:35 Order name: IV Saline Lock; Complete Time: 21:05 kb 12/22 20:35 Order name: Labs collected and sent; Complete Time: 21:05 kb 12/22 20:35 Order name: O2 Per Protocol; Complete Time: 21:05 kb 12/22 20:35 Order name: O2 Sat Monitoring; Complete Time: 21:05 kb EC:42 Rate is 97 beats/min. Rhythm is regular. QRS [place] is Normal. NM interval is normal at kb 136 msec. QRS interval is normal at 76 msec. QT interval is normal at 421 msec. Administered Medications: 21:00 Drug: Ativan IVP 1 mg IVP once Route: IVP; Site: right upper arm; ha1 21:30 Follow up: Response: No adverse reaction; Anxiety decreased ha1 21:42 Follow up: Response: No adverse reaction; Marked relief of symptoms me1 21:56 Drug: Ondansetron IVP 4 mg IVP once; over 2 minutes Route: IVP; Site: right upper arm; me1 22:20 Follow up: Response: No adverse reaction; Marked relief of symptoms ha1 21:57 Drug: morphine IVP or IV 4 mg IVP once over 4 mins Route: IVP; Infused Over: 4 mins; me1 Site: right upper arm; 22:20 Follow up: Response: No adverse reaction; Pain is decreased; RASS: Alert and Calm (0) ha1 Disposition: 12/23 04:13 Co-signature as Attending Physician, Esdras Delgado MD I agree with the assessment sp4 and plan of care. I reviewed the patient's care provided by the Advanced Practice Provider and agree with the diagnosis and treatment plan. Disposition Summary: 12/22/24 21:50 Hospitalization Ordered Notes: Hospitalization Status: Observation kb Provider: Jerad Fine Location: Telemetry/MedSurg (observation) kb Condition: Stable kb Problem: new kb Symptoms: are unchanged kb Bed/Room Type: Standard Room Assignment: 405(12/22/24 22:24) rk3 Diagnosis - Chest pain, unspecified kb Forms: - Medication Reconciliation Form kb - SBAR form kb - Leadership Thank You Letter kb Signatures: Dispatcher [employer] EDHafsa Andrews, REHABILITATION MEDICINE PHYSICIAN-C REHABILITATION MEDICINE PHYSICIAN-CkLuz Maria Benitez, RN RN ha1 Esdras Delgado MD MD sp4 Matilde Dodd RN RN me1 Manuela Sosa rk3 Corrections: (The following items were deleted from the chart) 12/22 20:36 20:36 BASIC METABOLIC PANEL+C.LAB.BRZ ordered. EDMS EDMS 20:36 20:36 CBC+H.LAB.BRZ ordered. EDMS EDMS 20:36 20:36 HEPATIC FUNCTION+C.LAB.BRZ ordered. EDMS EDMS 20:36 20:36 MAGNESIUM+C.LAB.BRZ ordered. EDMS EDMS 20:36 20:36 PROBNP+C.LAB.BRZ ordered. EDMS EDMS 20:36 20:36 Troponin High Sensitivity+C.LAB.BRZ ordered. EDMS EDMS 20:36 20:36 Chest Single View+RAD.RAD.BRZ ordered. EDMS EDMS 22:24 21:50 kb rk3
--- NOTE | 2024-12-22 21:51 | ER ---
Nurse's Notes [facility] Name: Deb Ford Age: 49 yrs Sex: Female : 1975 Arrival Date: 12/22/2024 Time: 20:22 Bed 18 Private MD: Diagnosis: Chest pain, unspecified Presentation: 12/22 20:27 Chief complaint: Patient states: CHEST PAIN OFF AND ON FOR A WEAK AND SOB, PENDING me1 HEART CATH ON SUNDAY. 20:27 Coronavirus screen: Client denies travel out of the [place] in the last 14 days. Ebola ha1 Screen: No symptoms or risks identified at this time. Initial Sepsis Screen: Does the patient meet any 2 criteria? No. Patient's initial sepsis screen is negative. Does the patient have a suspected source of infection? No. Patient's initial sepsis screen is negative. Risk Assessment: Do you want to hurt yourself or someone else? Patient reports no desire to harm self or others. Onset of symptoms was December 22, 2024. 20:27 Method Of Arrival: Wheelchair ha1 20:27 Acuity: CATA 2 ha1 Triage Assessment: 20:27 General: Appears uncomfortable, Behavior is cooperative. Pain: Complains of pain in ha1 chest Pain currently is 8 out of 10 on a pain scale. Quality of pain is described as heavy, pressure. Neuro: Level of Consciousness is awake, alert, obeys commands, Oriented to person, place, time, situation. Cardiovascular: Reports chest pain, shortness of breath, Patient's skin is warm and dry. Respiratory: Reports shortness of breath at rest on exertion Airway is patent Respiratory effort is even, unlabored, Respiratory pattern is tachypnea. Historical: - Allergies: 20:37 Bactrim; ha1 20:37 Erythromycin; ha1 20:37 Macrobid; ha1 20:37 PENICILLINS; ha1 20:37 Sulfa (Sulfonamide Antibiotics); ha1 - PMHx: 20:37 Arachnitis; chronic back pain; Enlarged bile duct; Left Footdrop; Heart valve disorder; ha1 - Immunization history:: Adult Immunizations up to date. - Infectious Disease History:: Denies. - Social history:: Smoking status: Patient denies any tobacco usage or history of. Screenin:30 [facility] ED Fall Risk Assessment (Adult) History of falling in the last 3 months, me1 including since admission No falls in past 3 months (0 pts) Confusion or Disorientation No (0 pts) Intoxicated or Sedated No (0 pts) Impaired Gait Yes (1 pt) Mobility Assist Device Used Yes (1 pt) Altered Elimination No (0 pt) Score/Fall Risk Level 0 - 2 = Low Risk Maintained a safe environment, Provided non-skid footwear, Hourly rounding (assess needs \T\ fall precautionary measures) done. 20:39 [facility] ED Fall Risk Assessment (Adult) History of falling in the last 3 months, ha1 including since admission. Abuse screen: Denies threats or abuse. Denies injuries from another. Nutritional screening: No deficits noted. Tuberculosis screening: No symptoms or risk factors identified. Assessment: 20:30 General: Appears uncomfortable, well groomed, well developed, well nourished, Behavior me1 is cooperative, appropriate for age, anxious, Reports CHEST PAIN OFF AND ON FOR A WEEK AND SOB, PENDING HEART CATH ON SUNDAY. Pain: Complains of pain in chest Pain radiates to left arm Pain currently is 8 out of 10 on a pain scale. Quality of pain is described as pressure, shooting, Pain began suddenly, Is intermittent, episodic. Neuro: Level of Consciousness is awake, alert, obeys commands, Oriented to person, place, time, situation, Appropriate for age. Cardiovascular: Patient's skin is warm and dry. Cardiovascular: Reports chest pain, shortness of breath. Respiratory: Airway is patent Respiratory effort is even, unlabored, Respiratory pattern is regular, symmetrical. Respiratory: GI: No signs and/or symptoms were reported involving the gastrointestinal system. : No signs and/or symptoms were reported regarding the genitourinary system. EENT: No signs and/or symptoms were reported regarding the EENT system. Derm: Skin is intact, is healthy with good turgor, Skin is pink, warm \T\ dry. Musculoskeletal: left foot drop. 22:30 Reassessment: Patient and/or family updated on plan of care and expected duration. Pain ha1 level reassessed. Patient is alert, oriented x 3, equal unlabored respirations, skin warm/dry/pink. Patient states feeling better. Patient states symptoms have improved. Vital Signs: 20:27 BP 136 / 79; Pulse 94; Resp 23 S; Temp 98.2(O); Pulse Ox 100% ; Weight 64.41 kg; Height ha1 5 ft. 2 in. ; Pain 8/10; 21:00 BP 128 / 66; Pulse 90; Resp 19; Pulse Ox 100% ; me1 22:00 BP 117 / 74; Pulse 77; Resp 18 S; Pulse Ox 98% on R/A; ha1 23:00 BP 103 / 51; Pulse 71; Resp 18 S; Pulse Ox 98% on R/A; ha1 23:53 BP 118 / 60; Pulse 74; Resp 16 S; Pulse Ox 98% on R/A; ha1 20:27 Body Mass Index 25.97 (64.41 kg, 157.48 cm) ha1 20:27 Pain Scale: Adult ha1 ED Course: 20:26 Patient arrived in ED. gm2 20:26 [facility] kb 20:26 Esdras Delgado MD is Attending Physician. kb 20:30 No provider procedures requiring assistance completed. Patient maintains SpO2 ak1 saturation greater than 95% on room air. 20:30 Patient has correct armband on for positive identification. Bed in low position. Call me1 light in reach. Side rails up X2. Provided Education on: POC. Verbalized understanding.. Client placed on continuous cardiac and pulse oximetry monitoring. NIBP monitoring applied. environmental monitoring technician on. Pulse ox on. NIBP on. 20:37 Triage completed. ha1 20:41 Matilde Dodd, RN is Primary Nurse. me1 21:00 Inserted saline lock: 20 gauge in right upper arm, using aseptic technique. Blood ha1 collected. Flushed with 10 mL NS Accessed peripheral vein via ultrasound, utilizing dynamic ultrasound technique. 21:06 Basic Metabolic Panel Sent. ha1 21:06 CBC with Diff Sent. ha1 21:06 LFT's Sent. ha1 21:06 Magnesium Sent. ha1 21:06 NT PRO-BNP Sent. ha1 21:06 Troponin HS Sent. ha1 21:12 XRAY Chest (1 view) In Process Unspecified. EDMS 21:50 Jerad Fine MD is Hospitalizing Provider. kb Administered Medications: 21:00 Drug: Ativan IVP 1 mg IVP once Route: IVP; Site: right upper arm; ha1 21:30 Follow up: Response: No adverse reaction; Anxiety decreased ha1 21:42 Follow up: Response: No adverse reaction; Marked relief of symptoms me1 21:56 Drug: Ondansetron IVP 4 mg IVP once; over 2 minutes Route: IVP; Site: right upper arm; me1 22:20 Follow up: Response: No adverse reaction; Marked relief of symptoms ha1 21:57 Drug: morphine IVP or IV 4 mg IVP once over 4 mins Route: IVP; Infused Over: 4 mins; me1 Site: right upper arm; 22:20 Follow up: Response: No adverse reaction; Pain is decreased; RASS: Alert and Calm (0) ha1 Medication: 20:30 VIS not applicable for this client. me1 Outcome: 21:50 Decision to Hospitalize by Provider. kb 23:54 Patient left the ED. ha1 Signatures: Dispatcher [employer] EDHafsa Andrews, DEVEN HEREDIA-Luz Maria Scott RN RN 1 Matilde Dodd RN RN ak1 Connie Robert 2 Corrections: (The following items were deleted from the chart) 21:38 20:27 Chief complaint: Patient states: CHEST PAIN OFF AND ON FOR A WEAK AND SOB, me1 PENDING HEART CATH ON SUNDAY ha1 23:54 23:00 BP 103 / 51; Pulse 71bpm; Resp 18bpm; Spontaneous; Pulse Ox 98% RA; ha1 ha1
[2024-12-22] MEDS ORDERED: ACETAMINOPHEN 325 MG TABLET PO PRN (22:06)
--- NOTE | 2024-12-22 22:23 | P.HP ---
Certification for Inpatient Patient admitted to: Observation With expected LOS: <2 Midnights Practitioner: I am a practitioner with admitting privileges, knowledge of patient current condition, hospital course, and medical plan of care. Services: Services provided to patient in accordance with Admission requirements found in Title 42 Section 412.3 of the Code of Federal Regulations Patient History Date of Service: 12/23/24 Reason for admission: Chest Pain History of Present Illness: 49 yrs old Female with past medical history of Tayler-Danlos syndrome, pulmonary hypertension, chronic back pain, hidradenitis, left foot drop, migraine who presented to the ER with chest discomfort and shortness of breath. Patient had chest pain on and off intermittently for about a week. Retrosternal with no radiation. Not associated with any diaphoresis. Associated with some shortness of breath. Has been seen by Dr. Che was scheduled for heart cath on Sunday but the pain got worse and was brought to ER. At the time of interview pain is 7 out of 10 in severity. Sharp. Nonradiating. Patient also complains of shortness of breath and a recent weight gain with lower extremity swelling as well. 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 Patient was assessed in the ER was admitted for further management of chest pain to rule out ACS Allergies nitrofurantoin [From Macrobid] Allergy (Verified 06/05/23 23:57) Hives Penicillins Allergy (Verified 06/05/23 23:57) Hives sulfamethoxazole [From Bactrim] Allergy (Verified 06/05/23 23:57) Hives trimethoprim [From Bactrim] Allergy (Verified 06/05/23 23:57) Hives erythromycin base Adverse Reaction (Verified 06/05/23 23:58) Hives Home medications list reviewed: Yes Home Medications: Mexiletine HCl [Mexitil*] 150 mg PO BID 08/21/22 Ondansetron [Zuplenz] 4 mg SL DAILY PRN 08/21/22 Pregabalin [Lyrica] 100 mg PO BID 08/21/22 Sumatriptan [Imitrex*] 6 mg SQ PRN PRN 08/21/22 Sumatriptan [Imitrex*] 100 mg PO BIDP PRN 08/21/22 Topiramate 50 mg PO BEDTIME 08/21/22 carBAMazepine [Carbamazepine ER] 200 mg PO BID 08/21/22 traMADol HCL [Ultram*] 200 mg PO DAILY 08/21/22 Mexiletine HCl [Mexitil*] 150 mg PO BID 06/06/23 buprenorphine HCL [Buprenorphine HCl] 8 mg PO BID 06/06/23 Mineral Oil Enema [Fleet Mineral Oil Enema*] 135 ml RC ONCE #1 btl 06/08/23 - Past Medical/Surgical History Diabetic: No Past Medical History: Reviewed- Non-Contributory -: gastroparesis -: foot drop to L leg -: chronic back pain Past Surgical History: Reviewed- Non-Contributory -: hysterectomy -: back surgeries x9 -: gallblader and appendix removal -: abd hernia -: prolapse bladder -: Spinal adhesions, Cauda Equina Syndrom, CRPS -: 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 -: - Family History Mother -: Hypertension, Cancer Father -: Hypertension, Cancer - Social History Smoking Status: Never smoker Alcohol use: No CD- Drugs: No Caffeine use: Yes Review of Systems 10-point ROS is otherwise unremarkable Physical Examination - Vital Signs Temperature: 98.4 F Blood Pressure: 132/74 Pulse: 76 Respirations: 18 Pulse Ox (%): 94 - Physical Exam General: Alert, Oriented x3, Mild distress HEENT: Atraumatic, Normocephalic Neck: Supple, 2+ carotid pulse no bruit Respiratory: Clear to auscultation bilaterally, Normal air movement Cardiovascular: Regular rate/rhythm, Normal S1 S2 Capillary refill: <2 Seconds Gastrointestinal: Soft and benign, W/out hepatosplenomegaly Musculoskeletal: No clubbing, No swelling Integumentary: No rashes, No tenderness/swelling Neurological: Other (Alert, Awake, Non focal ) Lymphatics: No axilla or inguinal lymphadenopathy - Studies Laboratory Data (last 24 hrs) 12/22/24 12/22/24 21:01 21:01 WBC 6.00 Hgb 13.0 Hct 38.0 Plt Count 239 Sodium 138 Potassium 4.2 BUN 9 Creatinine 0.55 Glucose 104 Magnesium 2.1 Total Bilirubin 0.2 AST 11 L ALT 18 Alkaline Phosphatase 119 H Assessment and Plan - Plan Chest Pain to r/o ACS Will trend cardiac enzymes Will monitor telemetry Started on aspirin and statin EKG did not show any acute changes sinus ST-T suggestive of ischemia had a recent echocardiogram Cardiology consult Will keep n.p.o. for now for possible heart cath in a.m. Tayler-Danlos syndrome Supportive management Pain control Chronic back pain Will continue buprenorphine Acute on chronic CHF possibly diastolic Patient had a recent echo Cardiology consulted Awaiting further recommendations from cardiology GI/DVT prophylaxis Advanced directive full code Discharge Plan: Home Plan to discharge in: 48 Hours - Advance Directives Does patient have a Living Will: No Does patient have a Durable POA for Healthcare: No - Code Status/Comfort Care Code Status: Full Code Time Spent Managing Pts Care (In Minutes): 48
[2024-12-23 00:19] VITALS: BMI 23.6
[2024-12-23 05:06] LABS: Albumin/Globulin Ratio 1.3 (1.1-1.8); Anion Gap 8.1 mEq/L (5.0-15.0); Bilirubin Total 0.2 mg/dL (0.2-1.0); Globulin 3.2 g/dL (2.3-3.5); Potassium 4.1 mEq/L (3.5-5.1); Protein, Total 7.2 g/dL (6.4-8.2)
[2024-12-23 05:58] LABS: Absolute Eosinophils 0.3 K/uL (0-0.5); Absolute Lymphocytes (CBC) 1.7 K/uL (0.7-4.9); Absolute Monocytes 0.5 K/uL (0.1-1.3); Absolute Neutrophil 2.3 K/uL (1.8-8.0); Basophils % 0.6 % (0-1.3); Eosinophils % 6.2 % (0-4.4); Hematocrit 33.7 % (36.0-45.0); Hemoglobin 11.6 g/dL (12.0-15.0); Lymphocytes % 35.2 % (15.3-44.8); MCHC 34.5 g/dL (32.0-36.0); MCV 86.9 fL (80-100); MPV 7.8 fL (7.6-11.3); Monocytes % 10.8 % (3.3-12.3); Neutrophils % 47.2 % (41.7-73.7); Nucleated Red Blood Cells % 0.2 % (0-0); Platelets 198 thou/uL (152-406); RBC Red Blood Cell Count 3.88 M/uL (3.86-4.86); Red Cell Distribution Width 12.8 % (12.1-15.2)
[2024-12-23] MEDS: ASPIRIN EC 81 MG TAB PO SCH (08:54)
[2024-12-23] MEDS: MEXILETINE HCL 150 MG CAP PO SCH (08:56)
[2024-12-23] MEDS: ENOXAPARIN 40 MG/0.4 ML SQ SCH (08:56)
[2024-12-23] MEDS: PREGABALIN 50 MG CAP PO SCH (08:56)
[2024-12-23] MEDS: MORPHINE 2 MG/ML SYR IV PRN (08:57)
[2024-12-23] MEDS: CARBAMAZEPINE 200 MG PO SCH (08:59)
[2024-12-23] MEDS: BUPRENORPHINE HCL 8 MG PO SCH (08:59)
--- NOTE | 2024-12-23 10:26 | P.CNS ---
Date of Consult: 12/23/24 Chief Complaint: Chest Pain History of Present Illness: Patient with PMH of ehler danlos syndrome, presented with worsening SOB, BLE and chest pain that has been going on for few weeks, chest pain radiate to left arm, associated with bilateral lower extremities swelling and weight gain. Allergies nitrofurantoin [From Macrobid] Allergy (Verified 06/05/23 23:57) Hives Penicillins Allergy (Verified 06/05/23 23:57) Hives sulfamethoxazole [From Bactrim] Allergy (Verified 06/05/23 23:57) Hives trimethoprim [From Bactrim] Allergy (Verified 06/05/23 23:57) Hives erythromycin base Adverse Reaction (Verified 06/05/23 23:58) Hives Home medications list reviewed: Yes Home Medications: Pregabalin [Lyrica] 100 mg PO BID 08/21/22 Sumatriptan [Imitrex*] 6 mg SQ PRN PRN 08/21/22 Sumatriptan [Imitrex*] 100 mg PO BIDP PRN 08/21/22 carBAMazepine [Carbamazepine ER] 200 mg PO BID 08/21/22 traMADol HCL [Ultram*] 200 mg PO DAILY 08/21/22 Mexiletine HCl [Mexitil*] 150 mg PO BID 06/06/23 buprenorphine HCL [Buprenorphine HCl] 8 mg PO TID 06/06/23 Levothyroxine [Synthroid*] 1 tab PO DAILY 12/23/24 Lidocaine [Aspercreme Lidocaine] 5 % TD DAILY 12/23/24 Mineral Oil Enema [Fleet Mineral Oil Enema*] 135 ml RC DAILY 12/23/24 Ondansetron [Zofran (Odt)*] 1 tab PO Q6HR PRN 12/23/24 Promethazine Tab [Phenergan*] 1 tab PO Q8HR PRN 12/23/24 Spironolactone [Aldactone*] 1 tab PO DAILY 12/23/24 - Past Medical/Surgical History Diabetic: No -: gastroparesis -: foot drop to L leg -: chronic back pain -: heart valve disorder -: enlarged bile duct -: hysterectomy -: back surgeries x9 -: gallblader and appendix removal -: abd hernia -: prolapse bladder -: Spinal adhesions, Cauda Equina Syndrom, CRPS -: 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 moist/pink, EOMI, Sclerae nonicteric Neck: Supple, 2+ carotid pulse no bruit, No LAD, Without JVD or thyroid abnormality Respiratory: Clear to auscultation bilaterally, Normal air movement Cardiovascular: Regular rate/rhythm, Normal S1 S2 Gastrointestinal: Normal bowel sounds, No tenderness Musculoskeletal: No tenderness Integumentary: No rashes Neurological: Normal gait, Normal speech, Normal tone, Normal affect Lymphatics: No axilla or inguinal lymphadenopathy Laboratory Data (last 24 hrs) 12/22/24 12/22/24 21:01 21:01 WBC 6.00 Hgb 13.0 Hct 38.0 Plt Count 239 Sodium 138 Potassium 4.2 BUN 9 Creatinine 0.55 Glucose 104 Magnesium 2.1 Total Bilirubin 0.2 AST 11 L ALT 18 Alkaline Phosphatase 119 H - Problems (1) Chest pain Current Visit: Yes Status: Acute Plan: concern for unstable angina NPO for coronary angiogram ASA 81 mg daily Lipitor 40 mg daily (2) Pulmonary hypertension Current Visit: Yes Status: Acute Plan: recently echo in office shows moderate pulmonary hypertension will get right heart cath
[2024-12-23] MEDS ORDERED: MIDAZOLAM HCL 2 MG/2 ML INJ ONE (11:52)
[2024-12-23] MEDS ORDERED: LIDOCAINE 1% 20 ML MDV ONE (11:52)
[2024-12-23] MEDS ORDERED: HEPA 1000U/500MLS 2,000 UNIT/1,000 ML BAG IV ONE (11:52)
[2024-12-23] MEDS ORDERED: HEPARIN 10,000 UNIT/10 ML VIAL IV ONE (11:52)
[2024-12-23] MEDS ORDERED: CLOPIDOGREL 75 MG TABLET ONE (11:53)
[2024-12-23] MEDS ORDERED: FENTANYL CITR 100 MCG/2 ML ONE (11:53)
[2024-12-23] MEDS ORDERED: TICAGRELOR 90 MG TABLET PO ONE (11:53)
[2024-12-23] MEDS ORDERED: ATROPINE SULF 1 MG/10 ML SYR IV ONE (11:53)
[2024-12-23] MEDS ORDERED: ASPIRIN 325 MG TAB ONE (11:53)
[2024-12-23] MEDS ORDERED: HEPARIN 5000 UNIT/ML 1 ML VIAL ONE (11:53)
[2024-12-23] MEDS ORDERED: NA CHLORIDE 0.9% 500 ML ONE (12:15)
--- NOTE | 2024-12-23 12:52 | P.PN ---
Date of Service: 12/23/24 Subjective: no events overnight continues with intermittent chest pain for last ~week falling asleep during conversations / more tired lately over last ~1-2 months, with lower extremity edema in last ~2 months as well NPO for heart cath family updated at bedside Physical Exam: GEN: Alert, oriented, falling asleep during conversation CV: Regular rate and rhythm, 2+ lower extremity edema Pulm: Nonlabored respirations on room air at rest, diminished bilaterally Neuro: Normal speech, normal affect Problem List: Chest pain Pulmonary Hypertension fluid retention Tayler-Danlos syndrome Chronic back pain Hx Hidradenitis suppurativa Hx Gastroparesis Chest pain Pulmonary Hypertension fluid retention on admission, presents with worsening intermittent chest pain, SOB for ~1 week. Was scheduled for heart cath with Dr. Che this Sunday but pain worsened so she came to ER. Recent echo from office noted pulmonary hypertension Trend troponins - negative x3. Monitor on telemetry Cardiology consulted NPO for Left and right heart cath continue home statin, asa 81mg Tayler-Danlos syndrome Chronic back pain Hx Hidradenitis suppurativa Hx Gastroparesis confirm home meds, restart as appropriate continue supportive care VTE: hold lovenox for heart cath Code: Full Dispo: Home Pending LHC/RHC, Cardiology recs Time Spent Managing Pts Care (In Minutes): 55
[2024-12-23] MEDS: SPIRONOLACTONE 25 MG TABLET PO SCH (13:53)
[2024-12-23] MEDS: FUROSEMIDE 20 MG TABLET PO SCH (16:01)
[2024-12-23] MEDS ORDERED: TRAMADOL HCL 200 MG PO SCH (17:00)
[2024-12-23] MEDS ORDERED: TRAMADOL HCL 200 MG PO PRN (17:00)
[2024-12-23] MEDS: ONDANSETRON 4 MG/2 ML VIAL IV PRN (17:11)
[2024-12-23] MEDS ORDERED: HOME MED 1 EA UNK (Topiramate [Topiramate] 50 MG Tablet) PO SCH (21:00)
[2024-12-23] MEDS: ATORVASTATIN 40 MG TAB PO SCH (21:20)
[2024-12-24] MEDS: LEVOTHYROXINE SOD 0.05 MG TABLET PO SCH (05:08)
[2024-12-24 05:23] LABS: Absolute Eosinophils 0.4 K/uL (0-0.5); Absolute Lymphocytes (CBC) 1.8 K/uL (0.7-4.9); Absolute Monocytes 0.5 K/uL (0.1-1.3); Absolute Neutrophil 2.6 K/uL (1.8-8.0); Basophils % 0.6 % (0-1.3); Hematocrit 35.3 % (36.0-45.0); Hemoglobin 12.4 g/dL (12.0-15.0); Lymphocytes % 33.7 % (15.3-44.8); MCH 30.2 pg (27.0-35.0); MCHC 35.1 g/dL (32.0-36.0); MCV 86.1 fL (80-100); MPV 7.7 fL (7.6-11.3); Monocytes % 9.6 % (3.3-12.3); Neutrophils % 49.1 % (41.7-73.7); Nucleated Red Blood Cells % 0.2 % (0-0); Platelets 235 thou/uL (152-406); Red Cell Distribution Width 13.1 % (12.1-15.2)
[2024-12-24 05:36] LABS: Anion Gap 7.8 mEq/L (5.0-15.0); Potassium 3.8 mEq/L (3.5-5.1)
[2024-12-24] MEDS: DIPHENHYDRAMINE 25 MG TAB/CAP PO PRN (06:17)
[2024-12-24 07:35] LABS: Thyroid Stimulating Hormone 4.25 uIU/mL (0.358-3.740)
[2024-12-24] MEDS: POTASSIUM CL SA 10 MEQ TAB PO ONE (09:39)
[2024-12-24] MEDS: BUMETANIDE 1 MG TABLET PO SCH (09:42)
--- NOTE | 2024-12-24 09:45 | P.PN ---
Date of Service: 12/24/24 Subjective: Had some diffuse itchiness and redness after procedure yesterday She did receive lasix around the same time, unclear if contributing SBP in 80-90s, stable overnight/this morning Otherwise doing okay. No new / worsening problems Physical Exam: GEN: Alert, oriented, falling asleep during conversation CV: Regular rate and rhythm, trace lower extremity edema Pulm: Nonlabored respirations on room air at rest, diminished bilaterally Neuro: Normal speech, normal affect Problem List: Chest pain Pulmonary Hypertension fluid retention Tayler-Danlos syndrome Chronic back pain Hx Hidradenitis suppurativa Hx Gastroparesis Chest pain Pulmonary Hypertension fluid retention on admission, presents with worsening intermittent chest pain, SOB for ~1 week. Was scheduled for heart cath with Dr. Che this Sunday but pain worsened so she came to ER. Recent echo from office noted pulmonary hypertension Trend troponins - negative x3. Monitor on telemetry Cardiology consulted continue home statin, asa 81mg 5/7 - s/p LHC/RHC yesterday; prelim report no PCI. Official report pending Patient noted to have some diffuse itchiness and redness after procedure yesterday She did receive lasix around the same time, unclear if from adhesives/lasix Benadryl added for possible allergic reaction Switch IV lasix to IV bumex 0.5 mg Monitor BP closely Tayler-Danlos syndrome Chronic back pain Hx Hidradenitis suppurativa Hx Gastroparesis confirm home meds, restart as appropriate continue supportive care VTE: lovenox resumed Code: Full Dispo: Home Pending BP stable, monitoring on bumex Time Spent Managing Pts Care (In Minutes): 55
--- NOTE | 2024-12-24 11:25 | P.PN ---
Subjective Date of Service: 12/24/24 Chief Complaint: Chest Pain Subjective: No new changes, No C/O voiced, Tolerating diet, Ambulating, Improving Review of Systems 10-point ROS is otherwise unremarkable Physical Examination - Vital Signs Temperature: 97.8 F Blood Pressure: 94/50 Pulse: 79 Respirations: 18 Pulse Ox (%): 97 - Physical Exam General: Alert, In no apparent distress HEENT: Atraumatic, PERRLA, EOMI Neck: Supple, JVD not distended Respiratory: Clear to auscultation bilaterally, Normal air movement Cardiovascular: Regular rate/rhythm, Normal S1 S2 Gastrointestinal: Normal bowel sounds, No tenderness Musculoskeletal: No tenderness Integumentary: No rashes Neurological: Normal speech, Normal tone, Normal affect Lymphatics: No axilla or inguinal lymphadenopathy - Studies Medications List Reviewed: Yes Assessment And Plan - Current Problems (Diagnosis) (1) Chest pain Current Visit: Yes Status: Acute Plan: concern for unstable angina, coronary angiogram done and shows normal coronaries ASA 81 mg daily Lipitor 40 mg daily (2) Pulmonary hypertension Current Visit: Yes Status: Acute Plan: recently echo in office shows moderate pulmonary hypertension Right heart cath done and shows mild pulmonary post capillary hypertension Bumex 0.5 mg daily (patient felt sick in stomach and itching with lasix) continue aldactone 25 mg daily
--- NOTE | 2024-12-24 13:28 | OP ---
Date of Procedure: 12/23/2024 Surgeon: Miguel Gustafson Procedures Performed: 1. Left heart catheterization. 2. Right heart catheterization. 3. Selective coronary angiogram. Indications For Procedure: Chest pains, pulmonary hypertension. Complications: None. Estimated Blood Loss: Less than 50 cc. Access: Right IJ, closed by manual compressions and right common femoral artery, closed by Mynx. Sedation Time: 20 minutes with 2 of Versed and 50 of fentanyl. Description Of Procedure: After risks, benefits, and alternatives were explained to the patient, the patient agreed to proceed with procedure and signed informed consent. The patient was brought back to the pathology laboratory aide, prepped and draped in sterile fashion. Time-out was performed. Sedation was admini stered. Next, right IJ access was obtained using ultrasound-guided micropuncture technique. A 7-Stu nch sheath was inserted. [place] catheter was advanced to the right side of the heart. Numbers were ob tained and then [place] was removed and sheath was removed and manual compression applied, and right com mon femoral artery access was obtained using ultrasound-guided micropuncture technique. A JL4 cathet er was advanced to the aortic root for selective angiogram of the left coronary systems, that was lat er exchanged with a JR4 catheter that passed to the LV cavity. LVEDP was obtained. Pullback did not show any gradient. Same catheter was used for selective angiogram of the right coronary systems. A t the end of procedure, catheter was removed over a J-wire. Sheath was removed. Mynx was applied an d hemostasis was achieved. The patient was moved back to recovery in stable condition. Findings: 1. Left main, normal. 2. LAD, normal. 3. Left circ, normal. 4. RCA, normal. 5. LVEDP 20 mmHg. Right heart catheterization numbers: 1. RA pressure 10 mmHg mean. 2. RV pressure 49/4 mmHg. 3. PA pressure is 40/16, mean pulmonary artery pressure is 28 mmHg. 4. Pulmonary capillary wedge pressure is 20. 5. Cardiac output averaged 6.77 by thermal. 6. Pulmonary vascular resistance is 1.2. Assessment And Plan: 1. Normal coronaries. 2. Mild pulmonary hypertension, post capillary with mild elevated filling pressure. 3. Plan is to continue spironolactone 25 and Bumex 0.5 mg daily for volume management and pulmonary h ypertension. Return to clinic in 2 to 3 weeks. IVAN/JASPREET Voice ID: [id number] Report ID: [id number]
[2024-12-24] MEDS: HYDROCODONE/APAP 7.5/325 MG TAB PO PRN (17:12)
[2024-12-24] MEDS: MORPHINE 4 MG/ML SYR IV ONE (22:10)
[2024-12-25 05:08] LABS: Anion Gap 8.7 mEq/L (5.0-15.0); Potassium 3.7 mEq/L (3.5-5.1)
[2024-12-25] MEDS: MIDODRINE HCL 5 MG TABLET PO SCH (10:47)
--- NOTE | 2024-12-25 11:22 | P.PN ---
Subjective Date of Service: 12/25/24 Chief Complaint: Chest Pain Subjective: No new changes (still complain of chest pain) Review of Systems 10-point ROS is otherwise unremarkable Physical Examination - Vital Signs Temperature: 98.2 F Blood Pressure: 97/56 Pulse: 86 Respirations: 12 Pulse Ox (%): 97 - Physical Exam General: Alert, In no apparent distress HEENT: Atraumatic, PERRLA, EOMI Neck: Supple, JVD not distended Respiratory: Clear to auscultation bilaterally, Normal air movement Cardiovascular: Regular rate/rhythm, Normal S1 S2 Gastrointestinal: Normal bowel sounds, No tenderness Musculoskeletal: No tenderness Integumentary: No rashes Neurological: Normal speech, Normal tone, Normal affect Lymphatics: No axilla or inguinal lymphadenopathy - Studies Medications List Reviewed: Yes Assessment And Plan - Current Problems (Diagnosis) (1) Chest pain Current Visit: Yes Status: Acute Plan: coronary angiogram done and shows normal coronaries, patient continue to have chest pain, explained that it is most likely non cardiac. ASA 81 mg daily Lipitor 40 mg daily (2) Pulmonary hypertension Current Visit: Yes Status: Acute Plan: recently echo in office shows moderate pulmonary hypertension Right heart cath done and shows mild pulmonary post capillary hypertension Bumex 0.5 mg daily (patient felt sick in stomach and itching with lasix) continue aldactone 25 mg daily (3) Hypotension Current Visit: Yes Status: Acute Plan: start patient on Midodrine 5 mg po BID
--- NOTE | 2024-12-25 11:39 | EKG ---
Test Date: 2024-12-24 Test Time: 20:38:22 Java Sdet: MS MEASUREMENT RESULTS: Intervals: Rate: 90 AK: 130 QRSD: 88 QT: 352 QTc: 430 Mingus: P: 61 AK: 130 QRS: 71 T: 7 INTERPRETIVE STATEMENTS: Normal sinus rhythm RSR' or QR pattern in V1 suggests right ventricular conduction delay Borderline ECG Compared to ECG 12/22/2024 21:02:51 RSR' in V1 or V2 now present Myocardial infarct finding no longer present Electronically Signed On 12-25-24 11:38:27 CDT by Miguel Gustafson
--- NOTE | 2024-12-25 11:52 | EKG ---
Test Date: 2024-12-22 Test Time: 21:02:51 Rodent Exterminator: CHIARA MEASUREMENT RESULTS: Intervals: Rate: 97 DC: 136 QRSD: 76 QT: 332 QTc: 421 Lissie: P: 75 DC: 136 QRS: 85 T: 24 INTERPRETIVE STATEMENTS: Normal sinus rhythm Septal infarct, age undetermined Abnormal ECG Compared to ECG 06/05/2023 18:17:50 Myocardial infarct finding now present Electronically Signed On 12-25-24 11:45:05 CDT by Miguel Gustafson
--- NOTE | 2024-12-25 12:14 | P.PN ---
Date of Service: 12/25/24 Subjective: Tolerating bumex without issues Nausea continues but denies emesis. Seems to be improving, hasn't needed zofran in ~24 hours Minimal appetite, tolerating liquids +chronic back pain denies SOB, afebrile Physical Exam: GEN: Alert, oriented, NAD CV: Regular rate and rhythm, trace lower extremity edema Pulm: Nonlabored respirations on room air at rest, clear bilaterally Neuro: Normal speech, normal affect Problem List: Chest pain Pulmonary Hypertension fluid retention Tayler-Danlos syndrome Chronic back pain Hx Hidradenitis suppurativa Hx Gastroparesis Chest pain Pulmonary Hypertension fluid retention on admission, presents with worsening intermittent chest pain, SOB for ~1 week. Was scheduled for heart cath with Dr. Che this Sunday but pain worsened so she came to ER. Recent echo from office noted pulmonary hypertension Trend troponins - negative x3. Monitor on telemetry Cardiology consulted continue home statin, asa 81mg 12/24 - s/p LHC found to have normal coronary arteries. RHC noted mild pulmonary hypertension, post capillary with mild elevated filling pressure Switch IV lasix to IV bumex 0.5 mg Monitor BP closely 12/25 - Continue bumex, spironolactone tolerating bumex without issues. Midodrine 5mg TID added. Monitor BP closely Suspected Allergic reaction 12/24 - Patient noted to have some diffuse itchiness and redness after LHC/RHC She did receive lasix around the same time, unclear if from adhesives/lasix Benadryl added for possible allergic reaction Switch IV lasix to IV bumex 0.5 mg Monitor BP closely 12/25 - Tolerating Bumex without issues. Tayler-Danlos syndrome Chronic back pain Hx Hidradenitis suppurativa Hx Gastroparesis confirm home meds, restart as appropriate continue supportive care VTE: lovenox Code: Full Dispo: Home Pending BP stable Time Spent Managing Pts Care (In Minutes): 55
[2024-12-25 16:40] VITALS: O2SAT 97
[2024-12-25 16:49] VITALS: BP 96/57; TEMP 98.2
--- NOTE | 2024-12-26 06:35 | P.DS ---
Admission Date: 12/23/24 Discharge Date: 12/25/24 Disposition: ROUTINE DISCHARGE Discharge Condition: GOOD Reason for Admission: Chest Pain Consultations: Cardiology - Dr. Gustafson Brief History of Present Illness: 49 yo F, PMH: Tayler-Danlos syndrome, pulmonary hypertension, chronic back pain, hidradenitis, left foot drop, migraine Patient presented to the ER with chest discomfort and shortness of breath. Patient had chest pain on and off intermittently for about a week. Retrosternal with no radiation. Not associated with any diaphoresis. Associated with some shortness of breath. Has been seen by Dr. Che was scheduled for heart cath on Sunday but the pain got worse and was brought to ER. At the time of interview pain is 7 out of 10 in severity. Sharp. Nonradiating. Patient also complains of shortness of breath and a recent weight gain with lower extremity swelling as well. Patient had a recent echocardiogram at weather observer office. Patient was assessed in the ER was admitted for further management of chest pain to rule out ACS. Hospital Course: Problem List: Chest pain Pulmonary Hypertension Fluid retention Tayler-Danlos syndrome Chronic back pain Hx Hidradenitis suppurativa Hx Gastroparesis Physician discharge instructions: Patient presented with intermittent chest pain x1 week associated with shortness of breath and ~2 months of progressively worsening lower extremity edema. Patient reports she was supposed to have a heart cath with Dr. Che this coming sunday (12/26) however pain worsened so she came to the ER for further evaluation. Troponin's were negative x3. EKG was without STEMI criteria. Chest xray was negative. Dr. Gustafson, weather observer was consulted. Patient underwent combined left and right heart cath on 12/23 which noted normal coronaries. No intervention warranted. Right heart cath noted mild pulmonary hypertension, post capillary with mild elevated filling pressure. No evidence to warrant further inpatient cardiac work up. Dr. Gustafson recommended continue spironolactone 25 mg and add bumex 0.5 mg daily on discharge for volume management and pulmonary hypertension. Her blood pressure remained borderline, so midodrine was added on 12/25. She was monitored through the day and blood pressures remained stable and better >95-110 systolic. Of note, she seemed to have an allergic reaction from adhesives/tape from electrodes, and possibly from lasix as well. Given her history of sulfa allergy and the potential chance of cross-reactivity, she was switched to bumex, and to lerated that fine. Medications: start Bumex 0.5 mg daily start midodrine 5mg twice daily continue other home meds as previously prescribed, including Spironolactone 25 mg daily Follow up: PCP 3-5 days Cardiology ~1-2 weeks Please call to schedule / confirm appointments Left and Right heart Catheter report: Findings: 1. Normal coronary arteries 2. Mild pulmonary hypertension, post capillary with mild elevated filling pressure Right heart catheterization numbers: 1. RA pressure 10 mmHg mean. 2. RV pressure 49/4 mmHg. 3. PA pressure is 40/16, mean pulmonary artery pressure is 28 mmHg. 4. Pulmonary capillary wedge pressure is 20. 5. Cardiac output averaged 6.77 by thermal. 6. Pulmonary vascular resistance is 1.2 Physical Exam: GEN: Alert, oriented, NAD CV: Regular rate and rhythm, no edema Pulm: Nonlabored respirations on room air at rest, clear bilaterally Neuro: Normal speech, normal affect Vital Signs/Physical Exam: Temp Pulse Resp BP Pulse Ox 98.2 F 73 16 96/57 L 97 12/25/24 16:00 12/25/24 16:00 12/25/24 16:00 12/25/24 16:00 12/25/24 16:00 Laboratory Data at Discharge: WBC 5.30 thou/uL (4.3-10.9) 12/24/24 04:52 Hgb 12.4 g/dL (12.0-15.0) 12/24/24 04:52 Hct 35.3 % (36.0-45.0) L 12/24/24 04:52 Plt Count 235 thou/uL (152-406) 12/24/24 04:52 Sodium 139 mEq/L (136-145) 12/25/24 04:28 Potassium 3.7 mEq/L (3.5-5.1) 12/25/24 04:28 BUN 9 mg/dL (7-18) 12/25/24 04:28 Creatinine 0.41 mg/dL (0.55-1.02) L 12/25/24 04:28 Glucose 95 mg/dL (74-106) 12/25/24 04:28 Magnesium 2.0 mg/dL (1.6-2.4) 12/24/24 04:52 Total Bilirubin 0.2 mg/dL (0.2-1.0) 12/23/24 04:16 AST 15 U/L (15-37) 12/23/24 04:16 ALT 19 U/L (13-56) 12/23/24 04:16 Alkaline Phosphatase 124 U/L (45-117) H 12/23/24 04:16 Home Medications: Pregabalin [Lyrica] 100 mg PO BID 08/21/22 Sumatriptan [Imitrex*] 6 mg SQ PRN PRN 08/21/22 Sumatriptan [Imitrex*] 100 mg PO BIDP PRN 08/21/22 carBAMazepine [Carbamazepine ER] 200 mg PO BID 08/21/22 Mexiletine HCl [Mexitil*] 150 mg PO BID 06/06/23 buprenorphine HCL [Buprenorphine HCl] 8 mg PO TID 06/06/23 Levothyroxine [Synthroid*] 1 tab PO DAILY 12/23/24 Lidocaine [Aspercreme Lidocaine] 5 % TD DAILY 12/23/24 Mineral Oil Enema [Fleet Mineral Oil Enema*] 135 ml RC DAILY 12/23/24 Ondansetron [Zofran (Odt)*] 1 tab PO Q6HR PRN 12/23/24 Promethazine Tab [Phenergan*] 1 tab PO Q8HR PRN 12/23/24 Spironolactone [Aldactone*] 1 tab PO DAILY 12/23/24 Tramadol HCl [Tramadol HCl ER] 200 mg PO DAILY AT SUPPER PRN 12/23/24 Bumetanide [Bumex*] 0.5 mg PO DAILY 60 Days #30 tab 12/25/24 Midodrine HCl [Proamatine*] 5 mg PO BID 30 Days #60 tab 12/25/24 New Medications: Bumetanide [Bumex*] 0.5 mg PO DAILY 60 Days #30 tab Midodrine HCl [Proamatine*] 5 mg PO BID 30 Days #60 tab Physician Discharge Instructions: Physician discharge instructions: Patient presented with intermittent chest pain x1 week associated with shortness of breath and ~2 months of progressively worsening lower extremity edema. Patient reports she was supposed to have a heart cath with Dr. Raslan this coming sunday (12/26) however pain worsened so she came to the ER for further evaluation. Troponin's were negative x3. EKG was without STEMI criteria. Chest xray was negative. Dr. Gustafson, weather observer was consulted. Patient underwent combined left and right heart cath on 12/23 which noted normal coronaries. No intervention warranted. Right heart cath noted mild pulmonary hypertension, post capillary with mild elevated filling pressure. No evidence to warrant further inpatient cardiac work up. Dr. Gustafson recommended continue spironolactone 25 mg and add bumex 0.5 mg daily on discharge for volume management and pulmonary hypertension. Her blood pressure remained borderline, so midodrine was added on 12/25. She was monitored through the day and blood pressures remained stable and better >95-110 systolic. Of note, she seemed to have an allergic reaction from adhesives/tape from electrodes, and possibly from lasix as well. Given her history of sulfa allergy and the potential chance of cross-reactivity, she was switched to bumex, and tolerated that fine. Medications: start Bumex 0.5 mg daily start midodrine 5mg twice daily continue other home meds as previously prescribed, including Spironolactone 25 mg daily Follow up: PCP 3-5 days Cardiology ~1-2 weeks Please call to schedule / confirm appointments Left and Right heart Catheter report: Findings: 1. Normal coronary arteries 2. Mild pulmonary hypertension, post capillary with mild elevated filling pressure Right heart catheterization numbers: 1. RA pressure 10 mmHg mean. 2. RV pressure 49/4 mmHg. 3. PA pressure is 40/16, mean pulmonary artery pressure is 28 mmHg. 4. Pulmonary capillary wedge pressure is 20. 5. Cardiac output averaged 6.77 by thermal. 6. Pulmonary vascular resistance is 1.2 Followup: Miguel Gustafson MD [ACTIVE - CAN ADMIT] - 1-2 Weeks EMILY MADISON [Primary Care Provider] - 1-2 Days Time spent managing pt's care (in minutes): 45
== END 2024-12-25 17:28 | disposition home or self-care (01) | DRG 287 ==
LOC: ER 20:22 → 4TH 22:06 → OBSVTOIN 12-23 21:12
PROVIDERS: ADMIT Family Medicine; ATTEND Hospitalist
PROC: B2111ZZ Fluoroscopy of Multiple Coronary Arteries using Low Osmolar Contrast (ICD-10-PCS; principal; 2024-12-23)
PROC: 4A023N8 Measurement of Cardiac Sampling and Pressure, Bilateral, Percutaneous Approach (ICD-10-PCS; 2024-12-23)
DX: I27.20 Pulmonary hypertension, unspecified (principal); Q79.60 Ehlers-Danlos syndrome, unspecified; G89.29 Other chronic pain; M54.9 Dorsalgia, unspecified; I50.9 Heart failure, unspecified; I95.9 Hypotension, unspecified; R60.9 Edema, unspecified; R07.9 Chest pain, unspecified; Z88.1 Allergy status to other antibiotic agents; Z88.0 Allergy status to penicillin; Z88.8 Allergy status to other drugs, medicaments and biological substances; Z88.2 Allergy status to sulfonamides; Z79.899 Other long term (current) drug therapy; Z90.710 Acquired absence of both cervix and uterus; Z79.890 Hormone replacement therapy
CPT/HCPCS: 36415; 71045; 76937; 80048; 80053; 80076; 83735; 83880; 84439; 84443; 84484; 85025; 93005; 93460; 94760; 96374; 96375; 99152; 99153; 99285; C1760; C1893; G0378; J0461; J1644; J1650; J2003; J2250; J2270; J2405; J3010; J7040; Q9966